=== PATIENT | female | born 1970 | race Two or more races ===

== ENCOUNTER → 2022-06-07 | Emergency (ER) | payer MEDICAID, OTHER ==
[~2022-06-07] VITALS: Ht 167.6 cm; Wt 97.8 kg
[~2022-06-07] MED LIST: MAGNESIUM CITRATE SOLUTION 300 ML BTL PO ONE; MAGNSOL PO; MORPHINE SULFATE 4 MG/ML SYR/VIAL IV ONE; ONDA-144 PO; ONDANSETRON HCL 4 MG/2 ML VIAL IV ONE
[2022-06-07 17:00] VITALS: BP 159/76
[2022-06-07 18:07] LABS: Basophils # (auto) 0.2 10 ^3/uL (0-0.2); Basophils % (auto) 2.4 % (0.0-2.0); Eosinophils # (auto) 0.1 10 ^3/uL (0-0.8); Eosinophils % (auto) 1.3 % (0.0-7.0); Hematocrit 33.1 % (36.0-46.0); Hemoglobin 10.7 g/dL (12.2-16.2); Lymphocytes # (auto) 1.5 10 ^3/uL (0.4-5.4); Lymphocytes % (auto) 22.5 % (10.0-50.0); Mean Corpuscular Hemoglobin 28.9 pg (28.0-32.0); Mean Corpuscular Hgb Conc. 32.3 g/dL (32.0-36.0); Mean Corpuscular Volume 89.6 fL (80.0-100.0); Monocytes # (auto) 0.3 10 ^3/uL (0-1.3); Monocytes % (auto) 4.6 % (0.0-12.0); Neutrophils # (auto) 4.7 10 ^3/uL (1.6-8.6); Neutrophils % (auto) 69.2 % (37.0-80.0); Nucleated Red Blood Cells % 0.1 %; Red Blood Cells 3.69 10^6/uL (4.0-5.20); Red Cell Distribution Width 15.4 % (11.8-14.3); White Blood Cell 6.7 10^3/uL (4.4-10.8)
[2022-06-07 18:24] LABS: Albumin 3.5 g/dL (3.4-5.0); Calcium 10.4 mg/dL (8.5-10.1); Potassium 3.8 mmol/L (3.5-5.1)
[2022-06-07 18:27] LABS: INR 0.97 (0.9-1.15)
[2022-06-07 18:28] LABS: BUN/Creatinine Ratio 4.8; Bilirubin, Total 0.4 mg/dL (0.2-1.0); Total Protein 7.4 g/dL (6.4-8.2)
== END | disposition home or self-care (01) ==
LOC: ER 16:40
DX: K59.00 Constipation, unspecified (principal); R11.2 Nausea with vomiting, unspecified; I12.0 Hypertensive chronic kidney disease with stage 5 chronic kidney disease or end stage renal disease; N18.6 End stage renal disease; Z99.2 Dependence on renal dialysis; Z86.73 Personal history of transient ischemic attack (TIA), and cerebral infarction without residual deficits
CPT/HCPCS: 36415; 74176; 80053; 83605; 83690; 84484; 85025; 85610; 85730; 93005

== ENCOUNTER 2023-01-12 14:01 | Emergency (ER) | payer MEDICAID ==
[~2023-01-12] VITALS: Ht 167.6 cm; Wt 89.0 kg
[~2023-01-12 14:01] MED LIST changes: -MAGNESIUM CITRATE SOLUTION 300 ML BTL PO ONE; -MORPHINE SULFATE 4 MG/ML SYR/VIAL IV ONE; -ONDANSETRON HCL 4 MG/2 ML VIAL IV ONE
[2023-01-12] MEDS ORDERED: HYDROcodone-ACET 10/325MG TAB PO ONE (15:45)
[2023-01-12 16:05] VITALS: BP 198/89
[2023-01-12] MEDS ORDERED: LOSARTAN POTASSIUM 50 MG TAB PO ONE (16:15)
[2023-01-12] MEDS ORDERED: amLODIPine BESYLATE 5 MG TAB PO ONE (16:15)
== END 2023-01-12 16:42 | disposition home or self-care (01) ==
LOC: ER 14:01
DX: S90.31XA Contusion of right foot, initial encounter (principal); I12.0 Hypertensive chronic kidney disease with stage 5 chronic kidney disease or end stage renal disease; N18.6 End stage renal disease; Z79.899 Other long term (current) drug therapy; Z88.5 Allergy status to narcotic agent; W20.8XXA Other cause of strike by thrown, projected or falling object, initial encounter; Y93.89 Activity, other specified; Y92.89 Other specified places as the place of occurrence of the external cause; Y99.8 Other external cause status
CPT/HCPCS: 73630

== ENCOUNTER 2023-09-19 22:14 | Inpatient (IN) | payer MEDICAID ==
[~2023-09-19] VITALS: Ht 167.6 cm; Wt 85.8 kg
[2023-09-19] MEDS ORDERED: HYDROmorphone HCL 2 MG/ML VL/or syr IM ONE (23:00)
[2023-09-19] MEDS ORDERED: cloNIDine HCL 0.1 MG TAB PO ONE (23:00)
[2023-09-19 23:32] LABS: Basophils # (auto) 0.1 10 ^3/uL (0-0.2); Basophils % (auto) 1.2 % (0.0-2.0); Eosinophils # (auto) 0.1 10 ^3/uL (0-0.8); Eosinophils % (auto) 3.1 % (0.0-7.0); Hematocrit 27.6 % (36.0-46.0); Hemoglobin 8.7 g/dL (12.2-16.2); Lymphocytes # (auto) 1.7 10 ^3/uL (0.4-5.4); Lymphocytes % (auto) 36.6 % (10.0-50.0); Mean Corpuscular Hemoglobin 30.3 pg (28.0-32.0); Mean Corpuscular Hgb Conc. 31.4 g/dL (32.0-36.0); Mean Corpuscular Volume 96.4 fL (80.0-100.0); Monocytes # (auto) 0.4 10 ^3/uL (0-1.3); Neutrophils # (auto) 2.3 10 ^3/uL (1.6-8.6); Neutrophils % (auto) 50.1 % (37.0-80.0); Nucleated Red Blood Cells % 0.2 %; Red Blood Cells 2.86 10^6/uL (4.0-5.20); Red Cell Distribution Width 18.1 % (11.8-14.3); White Blood Cell 4.5 10^3/uL (4.4-10.8)
[2023-09-19 23:42] LABS: Albumin 3.4 g/dL (3.2-4.8); Alkaline Phosphatase 51 U/L (46-116); Anion Gap 9 (5-15); Aspartate Aminotransferase < 8 U/L (13-40); BUN/Creatinine Ratio 3.2 (10.0-20.0); Blood Urea Nitrogen 27 mg/dL (9-23); Calcium 9.2 mg/dL (8.7-10.4); Carbon Dioxide 25 mmol/L (20-30); Chloride 105 mmol/L (98-107); Glucose 107 mg/dL (74-106); Potassium 3.8 mmol/L (3.5-5.1); Sodium 139 mmol/L (136-145)
[2023-09-19 23:43] LABS: Bilirubin, Total 0.4 mg/dL (0.2-1.0); Total Protein 6.3 g/dL (5.7-8.2)
[2023-09-19 23:45] LABS: Alanine Aminotransferase < 9 U/L (7-40)
[2023-09-20] MEDS ORDERED: FUROSEMIDE 40 MG/4 ML VIAL IV ONE (01:15)
[2023-09-20] MEDS ORDERED: AZITHROMYCIN 500MG/ 250ML 250 ML IV ONE (01:15)
[2023-09-20 04:25] VITALS: PULSE 78; RESP 18; O2SAT 95
[2023-09-20] MEDS: HYDROcodone-ACET 10/325MG TAB PO ONE ×2 (05:28→05:40)
[2023-09-20] MEDS ORDERED: NITROGLYCERIN 0.4 MG SL TAB SL PRN (05:30)
[2023-09-20] MEDS ORDERED: ACETAMINOPHEN 325 MG TAB PO PRN (05:30)
[2023-09-20] MEDS ORDERED: DEXTROSE (50%) 50ML SYRG IV PRN (05:30)
[2023-09-20] MEDS ORDERED: MORPHINE SULFATE INJ 2 MG/ml SYRG IV PRN (05:30)
[2023-09-20] MEDS ORDERED: ONDANSETRON HCL 4 MG/2 ML VIAL IV PRN (05:30)
[2023-09-20] MEDS: GABAPENTIN 100 MG CAP PO SCH ×3 (06:21→22:11)
[2023-09-20] MEDS: hydrALAZINE HCL 25 MG TAB PO SCH ×3 (06:21→22:12)
[2023-09-20] MEDS: InsuLIN REG 1unit/0.01ml Soln (100units/ml) SC SCH ×4 (07:00→22:00)
[2023-09-20] MEDS: ACCU-CHEK COMFORT CURVE STRIP VI SCH ×4 (07:06→22:03)
[2023-09-20] MEDS: SEVELAMER 800 MG TAB PO SCH ×3 (08:33→18:12)
[2023-09-20 08:49] LABS: Basophils # (auto) 0 10 ^3/uL (0-0.2); Basophils % (auto) 0.8 % (0.0-2.0); Eosinophils # (auto) 0.2 10 ^3/uL (0-0.8); Eosinophils % (auto) 3.8 % (0.0-7.0); Hematocrit 29.1 % (36.0-46.0); Lymphocytes # (auto) 2.3 10 ^3/uL (0.4-5.4); Mean Corpuscular Hemoglobin 29.2 pg (28.0-32.0); Mean Corpuscular Hgb Conc. 31.1 g/dL (32.0-36.0); Mean Corpuscular Volume 94.1 fL (80.0-100.0); Monocytes # (auto) 0.4 10 ^3/uL (0-1.3); Monocytes % (auto) 9.3 % (0.0-12.0); Neutrophils # (auto) 1.9 10 ^3/uL (1.6-8.6); Neutrophils % (auto) 39.1 % (37.0-80.0); Nucleated Red Blood Cells % 0.3 %; Red Blood Cells 3.09 10^6/uL (4.0-5.20); Red Cell Distribution Width 17.9 % (11.8-14.3); White Blood Cell 4.8 10^3/uL (4.4-10.8)
[2023-09-20 09:01] LABS: Albumin 3.6 g/dL (3.2-4.8); Alkaline Phosphatase 54 U/L (46-116); Anion Gap 8 (5-15); Aspartate Aminotransferase 10 U/L (13-40); BUN/Creatinine Ratio 2.7 (10.0-20.0); Bilirubin, Total 0.4 mg/dL (0.2-1.0); Blood Urea Nitrogen 25 mg/dL (9-23); Calcium 10.1 mg/dL (8.5-10.1); Carbon Dioxide 26 mmol/L (20-30); Chloride 104 mmol/L (98-107); Glucose 105 mg/dL (74-106); Potassium 4.2 mmol/L (3.5-5.1); Sodium 138 mmol/L (136-145); Total Protein 6.5 g/dL (5.7-8.2)
[2023-09-20 09:02] LABS: Alanine Aminotransferase < 9 U/L (7-40)
[2023-09-20 09:32] VITALS: PULSE 57; RESP 12; O2SAT 98
[2023-09-20] MEDS: cloNIDine HCL 0.1 MG TAB PO SCH ×2 (09:47→22:12)
[2023-09-20] MEDS: ASPirin 81 mg TAB PO SCH (09:47)
[2023-09-20] MEDS: FUROSEMIDE 40 MG TAB PO SCH (09:47)
[2023-09-20] MEDS: NIFEdipine ER 30 MG TAB PO SCH (09:48)
[2023-09-20] MEDS: CARVEDILOL 3.125 MG TAB PO SCH ×2 (09:48→22:12)
[2023-09-20] MEDS ORDERED: SODIUM CHL 0.9% 1000 ML BAG XX ONE (10:30)
[2023-09-20 11:58] LABS: Hepatitis B Surface Antigen Negative (Negative)
[2023-09-20 12:19] LABS: Hepatitis A Ab IgM Negative
[2023-09-20 12:20] LABS: Hepatitis B Core IgM Negative; Hepatitis C Antibody Negative (Negative)
[2023-09-20] MEDS: hydrALAZINE HCL 20 MG/ML VL IV PRN (17:23)
[2023-09-20] MEDS: HYDROcodone-ACET 5/325MG TAB PO PRN ×2 (19:02→23:55)
[2023-09-20 20:30] VITALS: PULSE 75; RESP 12; O2SAT 90
[2023-09-20] MEDS ORDERED: EPOETIN ALFA-EPBX 10,000 UNIT/1ML VIAL SC ONE (21:00)
[2023-09-21] MEDS ORDERED: methylPREDNISolone SOD SUCC 125 MG/2 ML VL IM ONE (04:30)
[2023-09-21] MEDS: HYDROcodone-ACET 5/325MG TAB PO PRN ×2 (04:43→10:32)
[2023-09-21] MEDS ORDERED: methylPREDNISolone SOD SUCC 125 MG/2 ML VL IV ONE (04:45)
[2023-09-21] MEDS: hydrALAZINE HCL 20 MG/ML VL IV PRN (04:57)
[2023-09-21 05:00] VITALS: BP 100/59; PULSE 75; RESP 17; TEMP 98.3; O2SAT 99
[2023-09-21 05:12] VITALS: BP 196/97; PULSE 75; RESP 17; TEMP 98.3; O2SAT 100
[2023-09-21] MEDS: hydrALAZINE HCL 25 MG TAB PO SCH ×2 (05:59→14:20)
[2023-09-21] MEDS: GABAPENTIN 100 MG CAP PO SCH ×2 (05:59→14:20)
[2023-09-21] MEDS: ACCU-CHEK COMFORT CURVE STRIP VI SCH ×2 (06:05→11:23)
[2023-09-21] MEDS: InsuLIN REG 1unit/0.01ml Soln (100units/ml) SC SCH ×2 (06:05→11:27)
[2023-09-21 07:51] LABS: Basophils # (auto) 0 10 ^3/uL (0-0.2); Basophils % (auto) 0.8 % (0.0-2.0); Eosinophils # (auto) 0.1 10 ^3/uL (0-0.8); Eosinophils % (auto) 2.6 % (0.0-7.0); Hematocrit 30.6 % (36.0-46.0); Hemoglobin 9.5 g/dL (12.2-16.2); Lymphocytes # (auto) 0.6 10 ^3/uL (0.4-5.4); Lymphocytes % (auto) 12.4 % (10.0-50.0); Mean Corpuscular Hgb Conc. 31.1 g/dL (32.0-36.0); Mean Corpuscular Volume 93.2 fL (80.0-100.0); Monocytes # (auto) 0.1 10 ^3/uL (0-1.3); Monocytes % (auto) 2.1 % (0.0-12.0); Neutrophils # (auto) 4.2 10 ^3/uL (1.6-8.6); Neutrophils % (auto) 82.1 % (37.0-80.0); Nucleated Red Blood Cells % 0.1 %; Red Blood Cells 3.28 10^6/uL (4.0-5.20); Red Cell Distribution Width 17.7 % (11.8-14.3); White Blood Cell 5.1 10^3/uL (4.4-10.8)
[2023-09-21 08:00] VITALS: PULSE 80; PULSE 81; RESP 18; O2SAT 100
[2023-09-21 08:19] LABS: Albumin 3.5 g/dL (3.2-4.8); Alkaline Phosphatase 54 U/L (46-116); Anion Gap 8 (5-15); Aspartate Aminotransferase 10 U/L (13-40); BUN/Creatinine Ratio 3.1 (10.0-20.0); Blood Urea Nitrogen 23 mg/dL (9-23); Calcium 9.8 mg/dL (8.5-10.1); Carbon Dioxide 28 mmol/L (20-30); Chloride 101 mmol/L (98-107); Glucose 101 mg/dL (74-106); Potassium 4.5 mmol/L (3.5-5.1); Sodium 137 mmol/L (136-145)
[2023-09-21 08:20] LABS: Alanine Aminotransferase < 9 U/L (7-40); Bilirubin, Total 0.5 mg/dL (0.2-1.0); Total Protein 6.5 g/dL (5.7-8.2)
[2023-09-21] MEDS: SEVELAMER 800 MG TAB PO SCH ×2 (08:23→12:01)
[2023-09-21 09:00] VITALS: BP 151/82; PULSE 81; RESP 18; TEMP 97.4; O2SAT 100
[2023-09-21] MEDS: NIFEdipine ER 30 MG TAB PO SCH (09:40)
[2023-09-21] MEDS: ASPirin 81 mg TAB PO SCH (09:40)
[2023-09-21] MEDS: FUROSEMIDE 40 MG TAB PO SCH (09:41)
[2023-09-21] MEDS: cloNIDine HCL 0.1 MG TAB PO SCH (09:41)
[2023-09-21] MEDS: CARVEDILOL 3.125 MG TAB PO SCH (09:42)
[2023-09-21 13:00] VITALS: BP 140/66; PULSE 87; RESP 18; TEMP 97.5; O2SAT 98
[2023-09-21] MEDS ORDERED: GAB100C PO (14:13)
[2023-09-21] MEDS ORDERED: ASPI81CH59 PO (14:13)
[2023-09-21] MEDS ORDERED: ALBU108A5 INH (14:13)
[2023-09-21] MEDS ORDERED: CARV6.2551 PO (14:13)
[2023-09-21] MEDS ORDERED: HYDR25TA87 PO (14:13)
[2023-09-21] MEDS ORDERED: CLON0.1T PO (14:13)
[2023-09-21] MEDS ORDERED: SEVE800T20 PO (14:13)
[2023-09-21] MEDS ORDERED: FURO40TA4 PO (14:15)
[2023-09-21] MEDS ORDERED: AMLO1TAB22 PO (14:15)
[2023-09-21] MEDS ORDERED: LOSA100T58 PO (14:15)
[2023-09-21] MEDS ORDERED: CINA30TA14 PO (14:15)
[2023-09-21] MEDS ORDERED: PANT40T PO (14:15)
[2023-09-21] MEDS ORDERED: CALC0.25 PO (14:15)
[2023-09-21] MEDS ORDERED: AMIT-256 PO (14:15)
[2023-09-21] MEDS ORDERED: NIFE90TA75 (14:15)
[2023-09-21] MEDS ORDERED: SODIUM CHL 0.9% 1000 ML BAG XX ONE (14:30)
[2023-09-21 14:56] VITALS: BP 151/65; PULSE 87; RESP 18; TEMP 97.5; O2SAT 98
[2023-09-21] MEDS ORDERED: EPOETIN ALFA-EPBX 10,000 UNIT/1ML VIAL SC ONE (21:00)
== END 2023-09-21 16:30 | disposition home or self-care (01) | DRG 194 ==
LOC: EDBD 22:14 → ER 22:14 → TELE 09-20 05:25 → TELE-CENTR 09-20 17:32
PROVIDERS: ADMIT Nurse Practitioner; ATTEND Family Medicine
PROC: 5A1D70Z Performance of Urinary Filtration, Intermittent, Less than 6 Hours Per Day (ICD-10-PCS; principal; 2023-09-20)
DX: I13.2 Hypertensive heart and chronic kidney disease with heart failure and with stage 5 chronic kidney disease, or end stage renal disease (principal); N18.6 End stage renal disease; E44.0 Moderate protein-calorie malnutrition; D63.8 Anemia in other chronic diseases classified elsewhere; E11.21 Type 2 diabetes mellitus with diabetic nephropathy; I16.1 Hypertensive emergency; I50.31 Acute diastolic (congestive) heart failure; E11.22 Type 2 diabetes mellitus with diabetic chronic kidney disease; E11.40 Type 2 diabetes mellitus with diabetic neuropathy, unspecified; E66.9 Obesity, unspecified; G89.29 Other chronic pain; M25.462 Effusion, left knee; I25.10 Atherosclerotic heart disease of native coronary artery without angina pectoris; Z86.73 Personal history of transient ischemic attack (TIA), and cerebral infarction without residual deficits; Z99.2 Dependence on renal dialysis; Z91.158 Patient's noncompliance with renal dialysis for other reason; Z68.30 Body mass index [BMI] 30.0-30.9, adult
CPT/HCPCS: 36415; 71045; 73562; 80053; 80074; 82962; 83605; 83880; 84484; 84550; 85025; 87081; 90935; 93005; 93306; G0378; J1642; J1815; J2405

== ENCOUNTER 2023-10-08 20:31 | Emergency (ER) | payer MEDICAID ==
[~2023-10-08] VITALS: Ht 165.1 cm; Wt 90.7 kg
[~2023-10-08 20:31] MED LIST changes: +ALBU108A5 INH; +AMIT-256 PO; +AMLO1TAB22 PO; +ASPI81CH59 PO; +CALC0.25 PO; +CARV6.2551 PO; +CINA30TA14 PO; +CLON0.1T PO; +FURO40TA4 PO; +GAB100C PO; +HYDR25TA87 PO; +LOSA100T58 PO; +NIFE90TA75; +PANT40T PO; +SEVE800T20 PO
[2023-10-08 21:27] VITALS: PULSE 94; RESP 20; O2SAT 94
[2023-10-08 21:51] LABS: Basophils # (auto) 0.1 10 ^3/uL (0-0.2); Basophils % (auto) 0.8 % (0.0-2.0); Eosinophils # (auto) 0.2 10 ^3/uL (0-0.8); Eosinophils % (auto) 1.8 % (0.0-7.0); Hematocrit 30.1 % (36.0-46.0); Hemoglobin 9.3 g/dL (12.2-16.2); Lymphocytes # (auto) 1.8 10 ^3/uL (0.4-5.4); Lymphocytes % (auto) 22.2 % (10.0-50.0); Mean Corpuscular Hemoglobin 28.7 pg (28.0-32.0); Mean Corpuscular Volume 92.7 fL (80.0-100.0); Monocytes # (auto) 0.6 10 ^3/uL (0-1.3); Monocytes % (auto) 7.1 % (0.0-12.0); Neutrophils # (auto) 5.6 10 ^3/uL (1.6-8.6); Neutrophils % (auto) 68.1 % (37.0-80.0); Nucleated Red Blood Cells % 0.1 %; Red Blood Cells 3.25 10^6/uL (4.0-5.20); Red Cell Distribution Width 16.8 % (11.8-14.3); White Blood Cell 8.3 10^3/uL (4.4-10.8)
[2023-10-08 22:00] LABS: Chloride 103 mmol/L (98-107); Potassium 4.6 mmol/L (3.5-5.1); Sodium 140 mmol/L (136-145)
[2023-10-08 22:01] LABS: Anion Gap 9 (5-15); Calcium 9.6 mg/dL (8.7-10.4); Carbon Dioxide 28 mmol/L (20-30)
[2023-10-08 22:06] LABS: BUN/Creatinine Ratio 4.4 (10.0-20.0); Blood Urea Nitrogen 38 mg/dL (9-23); Glucose 115 mg/dL (74-106)
[2023-10-08] MEDS: MORPHINE SULFATE 4 MG/ML SYR/VIAL IV ONE (22:45)
[2023-10-08 23:13] VITALS: BP 212/116; PULSE 82; RESP 18
== END 2023-10-08 23:49 | disposition home or self-care (01) ==
LOC: ER 20:31 → EDBD 20:31 → ER 23:39
DX: T24.221A Burn of second degree of right knee, initial encounter (principal); M25.562 Pain in left knee; I12.0 Hypertensive chronic kidney disease with stage 5 chronic kidney disease or end stage renal disease; N18.6 End stage renal disease; Z99.2 Dependence on renal dialysis; Z86.73 Personal history of transient ischemic attack (TIA), and cerebral infarction without residual deficits; Z79.82 Long term (current) use of aspirin; Z79.899 Other long term (current) drug therapy; Z88.5 Allergy status to narcotic agent; W18.39XA Other fall on same level, initial encounter; Y93.89 Activity, other specified; Y92.89 Other specified places as the place of occurrence of the external cause; Y99.8 Other external cause status
CPT/HCPCS: 36415; 73562; 80048; 85025; 93005; 96374; 99285; J2270

== ENCOUNTER 2024-07-31 11:01 | Emergency (ER) | payer MEDICAID ==
[~2024-07-31] VITALS: Ht 167.6 cm; Wt 74.7 kg
[~2024-07-31 11:01] MED LIST changes: +AMIT25TA20 PO; +APIX5TAB PO; +ASPI-543 PO; +ATOR20TA PO; +BENZ100C97 PO; +CALC0.5C PO; +CARV12.544 PO; +CINA30TA2 PO; +CLOP75TA28 PO; +DICY-89 PO; +DOCU-94 PO; +ERGO1CAP23 PO; +ERGO500086 PO; +ESCI5TAB PO; +GABA-1308 PO; +HYDR-3682 PO; +HYDR-4902 PO; +LACT10SO3 PO; +LIDO1.8P EX; +LOSA-535 PO; -LOSA100T58 PO; +NIFE1TAB31 PO; +PANT40TA2 PO; +SENN-58 PO; +SEVE800T8 PO; +SPIR25TA8 PO
--- NOTE | 2024-07-31 11:14 | ED.PDOC ---
History of Present Illness HPI Comments 53-year-old female who comes in with chief complaint of leg pain as well as abdominal pain and headache. The patient states that all the symptoms started last night. The patient finished her dialysis today and her blood pressure was also noted to be significantly elevated with a systolic of 260. At that time the dialysis center called 911 and had the patient transported to our facility. The patient states that she typically takes [place] for the pain but she has been out of her medication. She has had a history of this pain in the past. She denies any nausea, vomiting or diarrhea. There has been no fever or chills. Time Seen by MD: 11:03 Primary Care Provider: UNKNOWN Reviewed Notes: Nurses Notes, Product Manufacturing Professional Notes, Medications, Allergies (Cliff rgies listed above) Allergies: Coded Allergies: Ondansetron (Verified Allergy, Mild, 07/16/24) Hydromorphone (Verified Allergy, Unknown, 03/26/24) Ibuprofen (Verified Allergy, Unknown, 03/26/24) Morphine (Verified Allergy, Unknown, 03/26/24) Home Meds Active Scripts Nifedipine (Nifedipine Er) 30 Mg Tab, 60 MG PO QPM for 30 Days, #60 TAB Prov:JOSEMANUEL CORTES 07/18/24 Clopidogrel Bisulfate (Plavix) 75 Mg Tab, 75 MG PO DAILY for 60 Days, #60 TAB Prov:EAMON MURRAY MD 06/15/24 Nifedipine (Nifedipine Er) 30 Mg Tab, 30 MG PO QPM for 60 Days, #60 TAB Prov:EAMON MURRAY MD 06/15/24 Reported Medications Atorvastatin Calcium (Lipitor) 20 Mg Tab, 1 TAB PO DAILY for 30 Days, #30 07/16/24 Losartan Potassium (Losartan Potassium) 100 Mg Tab, 1 TAB PO DAILY for 90 Days, #90 07/16/24 Spironolactone (Spironolactone) 25 Mg Tab, 1 TAB PO DAILY for 90 Days, 07/16/24 Ergocalciferol (Vitamin D (Ergocalciferol) 50,000 Unit Cap, 1 CAP PO QWEEKLY for 49 Days, #7 07/16/24 Furosemide (Furosemide) 40 Mg Tab, 1 TAB PO DAILY for 30 Days, #30 07/16/24 Amlodipine Besylate (Amlodipine Besylate) 5 Mg Tab, 1 TAB PO BID for 30 Days, #60 07/16/24 Calcitriol (Calcitriol) 0.5 Mcg Cap, 1 CAP PO BID for 30 Days, #60 07/16/24 Hydroxyzine Hcl (Hydroxyzine Hcl) 25 Mg Tab, 1 TAB PO QID PRN 04/21/24 Lactulose (Lactulose) 10 Gm/15 Ml Sasha, 30 ML PO DAILY 04/21/24 Docusate Sodium (Colace) 100 Mg Cap, 1 CAP PO BID 04/21/24 Lidocaine (Ztlido) 1.8 % Pad, 1 PATCH EX DAILY 04/21/24 Apixaban Base (ELIQUIS) 5 Mg Tab, 1 TAB PO BID for 30 Days, #30 04/21/24 Escitalopram Oxalate (Lexapro) 5 Mg Tab, 1 TAB PO DAILY 04/21/24 Benzonatate (Benzonatate) 100 Mg Cap, 1 TAB PO TID 04/21/24 Cinacalcet Hydrochloride (Sensipar) 30 Mg Tab, 1 TAB PO DAILY for 30 Days, #30 04/21/24 Sevelamer Carbonate (Renvela) 800 Mg Tab, 3 TAB PO TID for 30 Days, #270 04/21/24 Gabapentin (Gabapentin) 100 Mg Cap, 1 TAB PO DAILY for 90 Days, #90 04/21/24 Pantoprazole Sodium Sesquihydr (Protonix) 40 Mg Tab, 1 TAB PO BID for 30 Days, #60 04/21/24 Senna (Senokot) 8.6 Mg Tab, 2 TAB PO BID for 15 Days, #60 03/27/24 Carvedilol (Carvedilol) 12.5 Mg Tab, 1 TAB PO BID for 60 Days 03/27/24 Dicyclomine Hcl (Dicyclomine Hcl) 10 Mg Cap, 10 MG PO TIDPRN PRN for PAIN SCALE 1 THRU 6 for 30 Days, MG 03/27/24 Hydrocodone-Acetaminophen (Hydrocodone Bitartrate/AC 5-325 mg) 1 Tab Tab, 1 TAB PO Q6HP PRN for PAIN SCALE 1 THRU 6, TAB 03/27/24 Amitriptyline Hcl (Amitriptyline Hcl) 25 Mg Tab, 50 MG PO HS for 30 Days, #30 03/27/24 Aspirin (Aspir-Low) 81 Mg Tab, 1 TAB PO DAILY for 30 Days, #30 03/27/24 Information Source: Patient, Emergency Med Personnel Mode of Arrival: EMS Severity: Moderate Timing: Hours Duration: Since onset 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 Associated signs and symptoms No associated chest pain or shortness for breath Past Medical History PAST MEDICAL HISTORY: CAD, CHF, CKF, COPD, CVA, ESRD, GERD, HTN, [place] Past Medical History (Other): DVT right upper extremity Surgical History: CABG PHOTOGRAPHIC PROCESS SCREEN MAKER History: No Pertinent PHOTOGRAPHIC PROCESS SCREEN MAKER History Family History Family History: Reviewed,noncontributory to illness Social History Smoker: Cigarettes Alcohol: Denies ETOH Use Drugs: Denies Drug Use Lives In: Home Constitutional: denies: chills, diaphoresis, fatigue, fever, malaise, sweats, weakness, others EENTM: denies: blurred vision, double vision, ear bleeding, ear discharge, ear drainage, ear pain, ear ringing, eye pain, eye redness, hearing loss, mouth pa in, mouth swelling, nasal discharge, nose bleeding, nose congestion, nose pain, photophobia, tearing, throat pain, throat swelling, voice changes, others Respiratory: denies: cough, hemoptysis, orthopnea, SOB at rest, shortness of breath, SOB with excertion, stridor, wheezing, others Cardiovascular: denies: chest pain, dizzy spells, diaphoresis, Dyspnea on exertion, edema, irregular heart beat, left arm pain, lightheadedness, palpitations, PND, syncope, others Gastrointestinal: reports: abdominal pain; denies: abdomen distended, blood streaked bowels, constipated, diarrhea, dysphagia, difficulty swallowing, hematemesis, melena, nausea, poor appetite, poor fluid intake, rectal bleeding, rectal pain, vomiting, others Genitourinary: denies: abnormal vagina bleeding, burning, dyspareunia, dysuria, flank pain, frequency, hematuria, incontinence, pain, , vagina discharge, urgency, others Neurological: reports: headache; denies: dizziness, fainting, left sided numbness, left sided weakness, numbness, paresthesia, pre-existing deficit, right sided numbness, right sided weakness, seizure, speech problems, tingling, tremors, weakness, others Musculoskeletal: reports: others (Bilateral leg pain); denies: back pain, gout, joint pain, joint swelling, muscle pain, muscle stiffness, neck pain Integumetry: denies: bruises, change in color, change in hair/nails, dryness, laceration, lesions, lumps, rash, wounds, others Allergic/Immunocompromised: denies: Difficulty Healing, Frequent Infections, Hives, Itching, others Hematologic/Lymphatic: denies: anemia, blood clots, easy bleeding, easy bruising, swollen glands, others Endocrine: denies: excessive hunger, excessive sweating, excessive thirst, excessive urination, flushing, intolerance to cold, intolerance to heat, unexplained weight gain, unexplained weight loss, others Psychiatric: denies: anxiety, bipolar disorder, depression, hopeless, panic disorder, schizophrenia, sleepless, suicidal, others Physical Exam General Appearance: Mild Distress HEENT: Normal ENT Inspection, Pharynx Normal, TMs Normal Neck: Full Range of Motion, Non-Tender, Normal, Normal Inspection Respiratory: Chest Non-Tender, Lungs Clear, No Accessory Muscle Use, No Respiratory Distress, Normal Breath Sounds Cardiovascular: No Edema, No JVD, No Murmur, No Gallop, Normal Peripheral Pulses, Regular Rate/Rhythm, Other (Tio catheter to the right chest) Breast Exam: Deferred Gastrointestinal: No Organomegaly, Non Tender, No Pulsatile Mass, Normal Bowel Sounds, Soft Genitalia: Deferred Pelvic: Deferred Rectal: Deferred Extremities: No calf tenderness, Normal capillary refill, No pedal edema Musculoskeletal : Apperance: Normal Neurologic: Alert, scow hand II-XII nml as Tested, Motor Weakness, Normal Affect, Normal Mood, No Sensory Deficits Cerebellar Function: Normal Reflexes: Normal Skin: Dry, Normal Color, Warm Lymphatic: No Adenopathy Was a procedure done? Was a procedure done?: No Differential Dx Considerations may include: Chronic pain syndrome, hypertensive urgency, hypertensive crisis, generalized weakness X-Ray, Labs, Meds, VS Vital Signs Date Time Temp Pulse Resp B/P (MAP) Pulse Ox O2 Delivery O2 Flow Rate FiO2 07/31/24 11:13 97.4 80 16 179/84 (115) 95 Lab Test 07/31/24 11:34 Range/Units White Blood Count 5.2 4.4-10.8 10^3/uL Red Blood Count 3.40 L 4.0-5.20 10^6/uL Hemoglobin 10.3 L 12.2-16.2 g/dL Hematocrit 31.9 L 36.0-46.0 % Mean Corpuscular Volume 93.9 80.0-100.0 fL Mean Corpuscular Hemoglobin 30.2 28.0-32.0 pg Mean Corpuscular Hemoglobin Concent 32.2 32.0-36.0 g/dL Red Cell Distribution Width 17.4 H 11.8-14.3 % Platelet Count 192 140-450 10^3/uL Mean Platelet Volume 7.3 6.9-10.8 fL Neutrophils (%) (Auto) 61.5 37.0-80.0 % Lymphocytes (%) (Auto) 28.3 10.0-50.0 % Monocytes (%) (Auto) 5.9 0.0-12.0 % Eosinophils (%) (Auto) 3.4 0.0-7.0 % Basophils (%) (Auto) 0.9 0.0-2.0 % Neutrophils # (Auto) 3.2 1.6-8.6 10 ^3/uL Lymphocytes # (Auto) 1.5 0.4-5.4 10 ^3/uL Monocytes # (Auto) 0.3 0-1.3 10 ^3/uL Eosinophils # (Auto) 0.2 0-0.8 10 ^3/uL Basophils # (Auto) 0 0-0.2 10 ^3/uL Nucleated Red Blood Cells 0.0 % Sodium Level 137 136-145 mmol/L Potassium Level 3.4 L 3.5-5.1 mmol/L Chloride Level 98 98-107 mmol/L Carbon Dioxide Level 26 20-31 mmol/L Anion Gap 13 5-15 Blood Urea Nitrogen 45 H 9-23 mg/dL Creatinine 6.18 H 0.550-1.02 mg/dL Glomerular Filtration Rate Calc 8 >90 mL/min BUN/Creatinine Ratio 7.3 L 10.0-20.0 Serum Glucose 217 H 74-106 mg/dL Calcium Level 9.3 8.7-10.4 mg/dL Current Medications Medications (Trade) Dose Ordered Sig/Faustino Route Start Time Stop Time Status Last Admin Acetaminophen/ Hydrocodone Bitart ([place] 10/325MG Tab) 1 tab ONCE ONCE PO 07/31/24 11:15 07/31/24 11:16 DC 07/31/24 12:10 The patient was given acetaminophen 10/325 p.o. here in the emergency department's The patient's CBC and chemistry panel does show some mild anemia as well as the aforementioned renal failure elevated BUN and elevated creatinine The patient will be discharged The patient will follow up with the primary care doctor The patient was told to continue taking her pain medication at home We did give the patient a prescription for [place] Time of 1ST Reevaluation: 11:23 Reevaluation 1ST: Unchanged Patient Education/Counseling: Diagnosis, Treatment, Prognosis, Need For Follow Up Family Education/Counseling: No Family Present Departure 1 Departure Time of Disposition: 12:31 Impression: Primary Impression: ESRD on dialysis Additional Impression: Chronic pain syndrome Disposition: 01 HOME / SELF CARE / HOMELESS Condition: Fair Discharged With: Self Critical Care Note Critical Care Time?: No Stability Stability form required: No Heart Score Heart Score: Heart Score Response (Comments) Value History N/A 0 EKG N/A 0 Age N/A 0 Risk Factors N/A 0 Troponin N/A 0 Total 0 MERA MENDOZA MD Jul 31, 2024 11:14
[2024-07-31 11:47] LABS: Basophils # (auto) 0 10 ^3/uL (0-0.2); Basophils % (auto) 0.9 % (0.0-2.0); Eosinophils # (auto) 0.2 10 ^3/uL (0-0.8); Eosinophils % (auto) 3.4 % (0.0-7.0); Hematocrit 31.9 % (36.0-46.0); Hemoglobin 10.3 g/dL (12.2-16.2); Lymphocytes # (auto) 1.5 10 ^3/uL (0.4-5.4); Lymphocytes % (auto) 28.3 % (10.0-50.0); Mean Corpuscular Hemoglobin 30.2 pg (28.0-32.0); Mean Corpuscular Hgb Conc. 32.2 g/dL (32.0-36.0); Mean Corpuscular Volume 93.9 fL (80.0-100.0); Monocytes # (auto) 0.3 10 ^3/uL (0-1.3); Monocytes % (auto) 5.9 % (0.0-12.0); Neutrophils # (auto) 3.2 10 ^3/uL (1.6-8.6); Neutrophils % (auto) 61.5 % (37.0-80.0); Platelet Count (auto) 192 10^3/uL (140-450); Red Cell Distribution Width 17.4 % (11.8-14.3); White Blood Cell 5.2 10^3/uL (4.4-10.8)
[2024-07-31 11:59] LABS: Chloride 98 mmol/L (98-107); Sodium 137 mmol/L (136-145)
[2024-07-31 12:00] LABS: Anion Gap 13 (5-15); Calcium 9.3 mg/dL (8.7-10.4); Carbon Dioxide 26 mmol/L (20-31)
[2024-07-31 12:01] LABS: Potassium 3.4 mmol/L (3.5-5.1)
[2024-07-31 12:05] LABS: BUN/Creatinine Ratio 7.3 (10.0-20.0); Blood Urea Nitrogen 45 mg/dL (9-23); Glucose 217 mg/dL (74-106)
[2024-07-31] MEDS: HYDROcodone-ACET 10/325MG TAB PO ONE (12:10)
[2024-07-31] MEDS: cloNIDine HCL 0.1 MG TAB PO ONE (14:01)
[2024-07-31] MEDS: PANTOPRAZOLE 40 MG TAB PO ONE (14:20)
[2024-07-31 15:51] VITALS: BP 138/100; PULSE 74; TEMP 98.1
[2024-07-31 15:59] VITALS: RESP 18; O2SAT 98
== END 2024-07-31 16:11 | disposition home or self-care (01) ==
LOC: EDBD 11:01 → EDUNIT# 11:01 → ER 11:01 → MERGE 11:01 → ER 16:01
DX: I13.2 Hypertensive heart and chronic kidney disease with heart failure and with stage 5 chronic kidney disease, or end stage renal disease (principal); N18.6 End stage renal disease; I50.89 Other heart failure; G89.4 Chronic pain syndrome; K21.9 Gastro-esophageal reflux disease without esophagitis; F17.210 Nicotine dependence, cigarettes, uncomplicated; Z99.2 Dependence on renal dialysis; Z86.73 Personal history of transient ischemic attack (TIA), and cerebral infarction without residual deficits; Z98.890 Other specified postprocedural states
CPT/HCPCS: 36415; 80048; 85025

== ENCOUNTER 2024-09-06 13:30 | Inpatient (IN) | payer MEDICAID ==
[~2024-09-06] VITALS: Ht 160 cm; Wt 76.4 kg
--- NOTE | 2024-09-06 13:49 | ED.PDOC ---
GI ASSESSMENT HPI Comments 53-year-old female presents to the ED via EMS for chief complaint of epigastric pain the started today during dialysis session. Patient reports she got about 3 L of fluid out, states pain continued throughout and at the end of the session which prompted her to call 911. Patient does also complain of nausea and vomiting for a week. EMS reports the patient's blood pressure was at 177/82 upon ED arrival. Patient denies any diarrhea, fever, chills, chest pain, shortness a breath. Patient has a medical history of ESRD, mi, CVA, hypertension, and diabetes Time Seen by MD: 13:33 Primary Care Provider: PLACIDO Reviewed Notes: Nurses Notes, Globe Mounter Notes, Medications, Allergies Allergies: Coded Allergies: Ondansetron (Verified Allergy, Mild, 08/05/24) Hydromorphone (Verified Allergy, Unknown, 10/08/23) Ibuprofen (Verified Allergy, Unknown, 08/05/24) Morphine (Verified Allergy, Unknown, 08/05/24) Home Meds Active Scripts Nifedipine (Nifedipine Er) 30 Mg Tab, 60 MG PO QPM for 30 Days, #60 TAB Prov:JOSEMANUEL CORTES RESIDENT 07/18/24 Clopidogrel Bisulfate (Plavix) 75 Mg Tab, 75 MG PO DAILY for 60 Days, #60 TAB Prov:EAMON MURRAY MD 06/15/24 Nifedipine (Nifedipine Er) 30 Mg Tab, 30 MG PO QPM for 60 Days, #60 TAB Prov:EAMON MURRAY MD 06/15/24 Ergocalciferol (VITAMIN D 62601 UNIT) 50,000 [place], [address] UNIT PO Q7D for 7 Days, #7 CAP Prov:YOLANDA NGUYEN MD 06/05/24 Magnesium Citrate (Magnesium Citrate) 1.745 Gm/30 Ml Sasha, 300 ML PO DAILY PRN, #300 ML Prov:LINUS PAZ MD 06/07/22 Ondansetron (Zofran) 4 Mg Tab, 4 MG PO Q8HPRN PRN, #15 MG Prov:LINUS PAZ MD 06/07/22 Reported Medications Atorvastatin Calcium (Lipitor) 20 Mg Tab, 1 TAB PO DAILY for 30 Days, #30 07/16/24 Losartan Potassium (Losartan Potassium) 100 Mg Tab, 1 TAB PO DAILY for 90 Days, #90 07/16/24 Spironolactone (Spironolactone) 25 Mg Tab, 1 TAB PO DAILY for 90 Days, #90 07/16/24 Ergocalciferol (Vitamin D (Ergocalciferol) 50,000 Unit Cap, 1 CAP PO QWEEKLY for 49 Days, #7 07/16/24 Furosemide (Furosemide) 40 Mg Tab, 1 TAB PO DAILY for 30 Days, #30 07/16/24 Amlodipine Besylate (Amlodipine Besylate) 5 Mg Tab, 1 TAB PO BID for 30 Days, #60 07/16/24 Calcitriol (Calcitriol) 0.5 Mcg Cap, 1 CAP PO BID for 30 Days, #60 07/16/24 Hydroxyzine Hcl (Hydroxyzine Hcl) 25 Mg Tab, 1 TAB PO QID PRN 04/21/24 Lactulose (Lactulose) 10 Gm/15 Ml Sasha, 30 ML PO DAILY 04/21/24 Docusate Sodium (Colace) 100 Mg Cap, 1 CAP PO BID 04/21/24 Lidocaine (Ztlido) 1.8 % Pad, 1 PATCH EX DAILY 04/21/24 Apixaban Base (ELIQUIS) 5 Mg Tab, 1 TAB PO BID for 30 Days, #30 04/21/24 Escitalopram Oxalate (Lexapro) 5 Mg Tab, 1 TAB PO DAILY 04/21/24 Benzonatate (Benzonatate) 100 Mg Cap, 1 TAB PO TID 04/21/24 Cinacalcet Hydrochloride (Sensipar) 30 Mg Tab, 1 TAB PO DAILY for 30 Days, #30 04/21/24 Sevelamer Carbonate (Renvela) 800 Mg Tab, 3 TAB PO TID for 30 Days, #270 04/21/24 Gabapentin (Gabapentin) 100 Mg Cap, 1 TAB PO DAILY for 90 Days, #90 04/21/24 Pantoprazole Sodium Sesquihydr (Protonix) 40 Mg Tab, 1 TAB PO BID for 30 Days, #60 04/21/24 Senna (Senokot) 8.6 Mg Tab, 2 TAB PO BID for 15 Days, #60 03/27/24 Carvedilol (Carvedilol) 12.5 Mg Tab, 1 TAB PO BID for 60 Days 03/27/24 Dicyclomine Hcl (Dicyclomine Hcl) 10 Mg Cap, 10 MG PO TIDPRN PRN for PAIN SCALE 1 THRU 6 for 30 Days, MG 03/27/24 Hydrocodone-Acetaminophen (Hydrocodone Bitartrate/AC 5-325 mg) 1 Tab Tab, 1 TAB PO Q6HP PRN for PAIN SCALE 1 THRU 6, TAB 03/27/24 Amitriptyline Hcl (Amitriptyline Hcl) 25 Mg Tab, 50 MG PO HS for 30 Days, #30 03/27/24 Aspirin (Aspir-Low) 81 Mg Tab, 1 TAB PO DAILY for 30 Days, #30 03/27/24 Amitriptyline HCl (Amitriptyline Hydrochlori) 50 Mg Tab, 1 TAB PO 09/21/23 Losartan Potassium (Losartan Potassium) 100 Mg Tab, 1 TAB PO DAILY 09/21/23 Furosemide (Furosemide) 40 Mg Tab, 1 TAB PO DAILY 09/21/23 Amlodipine Besylate (Amlodipine Besylate) 5 Mg Tab, 1 TAB PO BID 09/21/23 Cinacalcet HCl (Cinacalcet Hydrochloride) 30 Mg Tab, 1 TAB PO DAILY 09/21/23 Calcitriol (Calcitriol) 0.25 Mcg Cap, 1 CAP PO DAILY 09/21/23 Pantoprazole Sodium Sesquihydr (Pantoprazole Sodium) 40 Mg Tab, 1 TAB PO BID 09/21/23 Nifedipine (Nifedipine Er) 90 Mg Tab 09/21/23 Gabapentin (Gabapentin) 100 Mg Cap, 1 CAP PO TID 09/21/23 Sevelamer Hydrochloride (Sevelamer Hydrochloride) 800 Mg Tab, 3 TAB PO TID 09/21/23 Aspirin (Aspirin Low Dose) 81 Mg Chw, 1 TAB PO DAILY 09/21/23 Albuterol Sulfate (Albuterol Sulfate Hfa) 108 Mcg/Act Aer, INH 09/21/23 Clonidine Hydrochloride (Clonidine Hcl) 0.1 Mg Tab, 1 TAB PO BID 09/21/23 Carvedilol (Carvedilol) 6.25 Mg Tab, 1 TAB PO BID 09/21/23 Hydralazine HCl (Hydralazine HCl) 25 Mg Tab, 1 TAB PO BID 09/21/23 Information Source: Patient, Emergency Med Personnel Mode of Arrival: EMS Timing: Hours Duration: Since onset Quality: Sharp Vomitus: Hard Stool: Normal Severity: Moderate Recent: None Recent Hx of: None Pain Location: Epigastric Modifying Factors: Nothing Associated sign and symptoms: Nausea, Vomiting, Abdominal Pain Past Medical History PAST MEDICAL HISTORY: CAD, CHF, CKF, CVA, HTN, [place] Surgical History: CABG PRIMARY CARE NURSE PRACTITIONER History: Denies all PRIMARY CARE NURSE PRACTITIONER Hx Family History Family History: Reviewed,noncontributory to illness Social History Smoker: Non-Smoker Alcohol: Denies ETOH Use Drugs: Denies Drug Use Lives In: Home Constitutional: denies: chills, diaphoresis, fatigue, fever, malaise, sweats, weakness, others EENTM: denies: blurred vision, double vision, ear bleeding, ear discharge, ear drainage, ear pain, ear ringing, eye pain, eye redness, hearing loss, mouth pain, mouth swelling, nasal discharge, nose bleeding, nose congestion, nose pain, photophobia, tearing, throat pain, throat swelling, voice changes, others Respiratory: denies: cough, hemoptysis, orthopnea, SOB at rest, shortness of breath, SOB with excertion, stridor, wheezing, others Cardiovascular: denies: chest pain, dizzy spells, diaphoresis, Dyspnea on exertion, edema, irregular heart beat, left arm pain, lightheadedness, palpitations, PND, syncope, others Gastrointestinal: reports: abdominal pain, nausea, vomiting; denies: abdomen distended, blood streaked bowels, constipated, diarrhea, dysphagia, difficulty swallowing, hematemesis, melena, poor appetite, poor fluid intake, rectal bleeding, rectal pain, others Genitourinary: denies: abnormal vagina bleeding, burning, dyspareunia, dysuria, flank pain, frequency, hematuria, incontinence, pain, , vagina discharge, urgency, others Neurological: denies: dizziness, fainting, headache, left sided numbness, left sided weakness, numbness, paresthesia, pre-existing deficit, right sided numbness, right sided weakness, seizure, speech problems, tingling, tremors, weakness, others Musculoskeletal: denies: back pain, gout, joint pain, joint swelling, muscle pain, muscle stiffness, neck pain, others Integumetry: denies: bruises, change in color, change in hair/nails, dryness, laceration, lesions, lumps, rash, wounds, others Allergic/Immunocompromised: denies: Difficulty Healing, Frequent Infections, Hives, Itching, others Hematologic/Lymphatic: denies: anemia, blood clots, easy bleeding, easy bruising, swollen glands, others Endocrine: denies: excessive hunger, excessive sweating, excessive thirst, excessive urination, flushing, intolerance to cold, intolerance to heat, unexplained weight gain, unexplained weight loss, others Psychiatric: denies: anxiety, bipolar disorder, depression, hopeless, panic disorder, schizophrenia, sleepless, suicidal, others All Other Systems: Reviewed and Negative Physical Exam General Appearance: Moderate Distress HEENT: Normal ENT Inspection, Pharynx Normal, TMs Normal Neck: Full Range of Motion, Non-Tender, Normal, Normal Inspection Respiratory: Chest Non-Tender, Lungs Clear, No Accessory Muscle Use, No Respiratory Distress, Normal Breath Sounds Cardiovascular: No Edema, No JVD, No Murmur, No Gallop, Normal Peripheral Pulses, Regular Rate/Rhythm Breast Exam: Deferred Gastrointestinal: No Organomegaly, Non Tender, No Pulsatile Mass, Normal Bowel Sounds, Soft Genitalia: Deferred Pelvic: Deferred Rectal: Deferred Extremities: Normal range of motion, No pedal edema Musculoskeletal : Apperance: Normal Neurologic: Alert Cerebellar Function: NOT DONE Reflexes: NOT DONE Skin: Pallor Peripheral Pulses: 3+ Radial (R), 3+ Radial (L) Lymphatic: No Adenopathy Was a procedure done? Was a procedure done?: No GI differential Dx Differential Diagnosis: Constipation, Diverticular disease, Esophagitis, Gastritis/PUD, Gastroenteritis, Pancreatitis, Dehydration, Electrolyte Imbalance X-Ray, Labs, Meds, VS Vital Signs Date Time Temp Pulse Resp B/P (MAP) Pulse Ox O2 Delivery O2 Flow Rate FiO2 09/06/24 14:34 75 18 97 Room Air 09/06/24 14:34 98.2 75 18 208/67 (114) 97 98.2 221/103 (142) 09/06/24 14:02 98.4 78 18 177/82 (113) 95 Patient alert. Just came from dialysis. Blood pressure elevated. Saturation pristine on room air. Was given clonidine. She has been having abdominal discomfort for a week. Nausea vomiting diarrhea. Reviewed her history. Explained to the patient. Continue cardiac monitoring. Time of 1ST Reevaluation: 13:56 Reevaluation 1ST: Unchanged Patient Education/Counseling: Diagnosis, Treatment, Prognosis Family Education/Counseling: No Family Present Additional Information I reviewed the following notes from patient's past medical encounters: 07/31/25- ESRD Dialysis The following tests were ordered, and results were reviewed by me: (Labs, XY, EKG) Additional Information was gathered from interviewing the following independent historians: Paramedics I reviewed and agreed with the following test results read by other providers: I discussed treatment and results with medical personnel Departure 1 Departure Time of Disposition: 14:39 Impression: Primary Impression: Acute abdominal pain Additional Impressions: Hypertensive urgency ESRD on dialysis Disposition: ADMITTED INPATIENT Admit to: Med Surg Condition: Guarded Critical Care Note Critical Care Time?: Yes (45 min-critical care time only) Stability Stability form required: No I personally scribed for JUAN ALBERTO MCGHEE MD ([email or web address]) on 09/06/24 at 13:48. Electronically submitted by Darling Tai ([facility]). I personally scribed for JUAN ALBERTO MCGHEE MD ([email or web address]) on 09/06/24 at 13:57. Electronically submitted by Darling Tai ([facility]). JUAN ALBERTO MCGHEE MD Sep 06, 2024 13:48
[2024-09-06 15:07] LABS: Chloride 100 mmol/L (98-107); Potassium 3.5 mmol/L (3.5-5.1)
[2024-09-06 15:08] LABS: Anion Gap 8 (5-15); Calcium 9.4 mg/dL (8.7-10.4); Carbon Dioxide 26 mmol/L (20-31)
[2024-09-06 15:13] LABS: BUN/Creatinine Ratio 8.4 (10.0-20.0)
[2024-09-06 15:29] LABS: Blood Urea Nitrogen 47 mg/dL (9-23); Glucose 128 mg/dL (74-106); Sodium 134 mmol/L (136-145)
[2024-09-06 15:40] LABS: Lipase 44 U/L (12-53)
[2024-09-06 15:42] LABS: Basophils # (auto) 0.1 10 ^3/uL (0-0.2); Basophils % (auto) 0.9 % (0.0-2.0); Eosinophils # (auto) 0.1 10 ^3/uL (0-0.8); Eosinophils % (auto) 2.1 % (0.0-7.0); Hematocrit 36.2 % (36.0-46.0); Hemoglobin 11.6 g/dL (12.2-16.2); Lymphocytes # (auto) 1.4 10 ^3/uL (0.4-5.4); Lymphocytes % (auto) 23.7 % (10.0-50.0); Mean Corpuscular Volume 93.9 fL (80.0-100.0); Monocytes # (auto) 0.4 10 ^3/uL (0-1.3); Monocytes % (auto) 7.5 % (0.0-12.0); Neutrophils # (auto) 3.8 10 ^3/uL (1.6-8.6); Neutrophils % (auto) 65.8 % (37.0-80.0); Nucleated Red Blood Cells % 0.2 %; Platelet Count (auto) 195 10^3/uL (140-450); Red Blood Cells 3.85 10^6/uL (4.0-5.20); Red Cell Distribution Width 16.6 % (11.8-14.3); White Blood Cell 5.7 10^3/uL (4.4-10.8)
[2024-09-06] MEDS ORDERED: LABETALOL HCL 20 MG/4 ML VL IV ONE (16:15)
[2024-09-06] MEDS: hydrALAZINE HCL 20 MG/ML VL IV ONE (17:46)
[2024-09-06 19:23] VITALS: PULSE 89; RESP 18; O2SAT 96
[2024-09-06] MEDS: HYDROcodone-ACET 5/325MG TAB PO ONE (19:32)
[2024-09-06] MEDS: ONDANSETRON HCL 4 MG/2 ML VIAL IV ONE (20:09)
[2024-09-06] MEDS ORDERED: METOCLOPRAMIDE HCL 5MG/ml INJ 2ml VIAL IV PRN (21:15)
[2024-09-06] MEDS ORDERED: NITROGLYCERIN 0.4 MG SL TAB SL PRN (22:45)
[2024-09-06] MEDS ORDERED: MORPHINE SULFATE INJ 2 MG/ml SYRG IV PRN (22:45)
--- NOTE | 2024-09-06 22:46 | DVHHP2 ---
History of Present Illness Reason for Visit: Hypertensive urgency History of Present Illness The patient is a 53-year-old female with past medical history of Coronary artery disease, CHF CVA, hypertension, OH, and end-stage renal disease on hemodialysis who presented to [facility] with complaint of acute abdominal pain. Patient reports symptoms started during her dialysis session when about 3 L of fluid was taken out, associated nausea vomiting, continue throughout until the end of the session which prompted this visit. Patient was seen and evaluated in the ED, laboratory data shows WBC 5.7, platelets 195 sodium 134, potassium 3.5, BUN 47, creatinine 5.58, GFR 9, glucose 128, lipase 44, blood pressure 221/103 trending down to 134/75, heart rate 88, temperature 98.2 F, O2 saturation 97% on room air. Patient was given IV hydralazine, please see medication orders section in the computer. On my assessment, patient denied chest pain, no headache, no dizziness, no diaphoresis, no shortness of breath, no diarrhea, no nausea, no vomiting, no fever, no chills. Patient was admitted for further evaluation and medical management. Past Medical History CAD, CHF, CKF, CVA, HTN, OH Past Surgical History CABG Family History Reviewed, noncontributory to the management of this case. Past Social History The patient lives at home, denies smoking, alcohol or illicit drugs abuse. Review of Systems Constitutional: No: Fever, Chills, Sweats, Weakness, Malaise, Other Eyes: No: Pain, Vision change, Conjunctivae inflammation, Eyelid inflammation, Other, Redness ENT: No: Ear pain, Ear discharge, Nose pain, Nose discharge, Nose congestion, Mouth pain, Mouth swelling, Throat pain, Throat swelling, Other Respiratory: No: Cough, Dry, Shortness of breath, SOB with excertion, Wheezing, Hemoptysis, Pleuritic Pain, Sputum, Wheezing, Other Cardiovascular: No: Chest Pain, Palpitations, Orthopnea, Paroxysmal Noc. Dyspnea, Edema, Lt Headedness, Other Gastrointestinal: Nausea, Vomiting, Abdominal Pain; No: Diarrhea, Constipation, Melena, Hematochezia, Other Genitourinary: No Dysuria, No Frequency, No Incontinence, No Hematuria, No Retention, No Other Musculoskeletal: No: other, neck pain, shoulder pain, arm pain, back pain, hand pain, leg pain, foot pain Skin: No: Rash, Lesions, Jaundice, Bruising, Other Neurological: No: Weakness, Numbness, Incoordination, Change in speech, Confusion, Seizures, Other Allergies: Coded Allergies: Ondansetron (Verified Allergy, Mild, 08/05/24) Hydromorphone (Verified Allergy, Unknown, 10/08/23) Ibuprofen (Verified Allergy, Unknown, 08/05/24) Morphine (Verified Allergy, Unknown, 08/05/24) Medications Current Medications Medications Dose Ordered Sig/Faustino Route Start Time Stop Time Status Last Admin Dose Admin Aspirin 81 mg DAILY PO 09/07/24 10:00 Sevelamer HCl 800 mg TIDWM PO 09/07/24 08:00 Multivit/Ca Carb/ B Cmplx/FA/Prenat 1 tab DAILY PO 09/07/24 10:00 Hydralazine HCl 10 mg Q6HP PRN IV 09/06/24 21:00 Amlodipine Besylate 5 mg DAILY PO 09/07/24 10:00 Carvedilol 12.5 mg Q12HR PO 09/06/24 22:00 Atorvastatin Calcium 20 mg HS PO 09/06/24 22:00 Famotidine 10 mg DAILY IV 09/07/24 10:00 Docusate Sodium 100 mg BIDPRN PRN PO 09/06/24 21:00 Acetaminophen 650 mg Q6HP PRN PO 09/06/24 21:00 Clopidogrel Bisulfate 75 mg DAILY PO 09/07/24 10:00 Metoclopramide HCl 5 mg Q6HPRN PRN IV 09/06/24 21:15 Exam Vital Signs Vital Signs Date Time Temp Pulse Resp B/P (MAP) Pulse Ox O2 Delivery O2 Flow Rate FiO2 09/06/24 19:23 89 18 180/80 (113) 96 09/06/24 19:23 Room Air* 0 21 09/06/24 14:34 98.2 98.2 General Appearance: Alert, Oriented X3, Cooperative, No acute distress HEENT: Atraumatic, PERRLA, EOMI, Mucous membr. moist/pink Respiratory: Clear to auscultation, Normal air movement Cardiovascular: Regular rate, Normal S1, Normal S2, No murmurs Abdominal: Normal bowel sounds, Soft, No tenderness, No hepatospenomegaly, No masses Extremities: No clubbing, No cyanosis, No edema, Normal pulses, No tenderness/swelling Skin: No rashes, No breakdown, No significant lesion Neuro: Normal speech, Normal tone, Sensation intact, Cranial nerves 3-12 NL, Reflexes 2+, Other (Generalized weakness) Psych/Mental Status: Mental status NL, Mood NL Labs/Xrays Labs Test 09/06/24 15:19 09/06/24 14:25 Range/Units White Blood Count 5.7 4.4-10.8 10^3/uL Red Blood Count 3.85 L 4.0-5.20 10^6/uL Hemoglobin 11.6 L 12.2-16.2 g/dL Hematocrit 36.2 36.0-46.0 % Mean Corpuscular Volume 93.9 80.0-100.0 fL Mean Corpuscular Hemoglobin 30.0 28.0-32.0 pg Mean Corpuscular Hemoglobin Concent 32.0 32.0-36.0 g/dL Red Cell Distribution Width 16.6 H 11.8-14.3 % Platelet Count 195 140-450 10^3/uL Mean Platelet Volume 7.2 6.9-10.8 fL Neutrophils (%) (Auto) 65.8 37.0-80.0 % Lymphocytes (%) (Auto) 23.7 10.0-50.0 % Monocytes (%) (Auto) 7.5 0.0-12.0 % Eosinophils (%) (Auto) 2.1 0.0-7.0 % Basophils (%) (Auto) 0.9 0.0-2.0 % Neutrophils # (Auto) 3.8 1.6-8.6 10 ^3/uL Lymphocytes # (Auto) 1.4 0.4-5.4 10 ^3/uL Monocytes # (Auto) 0.4 0-1.3 10 ^3/uL Eosinophils # (Auto) 0.1 0-0.8 10 ^3/uL Basophils # (Auto) 0.1 0-0.2 10 ^3/uL Nucleated Red Blood Cells 0.2 % Sodium Level 134 L 136-145 mmol/L Potassium Level 3.5 3.5-5.1 mmol/L Chloride Level 100 98-107 mmol/L Carbon Dioxide Level 26 20-31 mmol/L Anion Gap 8 5-15 Blood Urea Nitrogen 47 H 9-23 mg/dL Creatinine 5.58 H 0.550-1.02 mg/dL Glomerular Filtration Rate Calc 9 >90 mL/min BUN/Creatinine Ratio 8.4 L 10.0-20.0 Serum Glucose 128 H 74-106 mg/dL Calcium Level 9.4 8.7-10.4 mg/dL Lipase 44 12-53 U/L Assessment/Plan Assessment/Plan Acute abdominal pain Generalized weakness Hypertensive urgency Electrolyte imbalance Nausea and vomiting End-stage renal disease on hemodialysis Plan 1. Admit to telemetry unit 2. Breathing treatment 3. Pain control management 4. Management of fluids and electrolytes 5. Consultation for Nephrology 6. Diagnostic tests chest x-ray 7. DVT prophylaxis-on aspirin 8. Repeat labs CBC, CMP in a.m. 9. Continue with current medical management 10. Treatment plan discussed with patient and RN. Patient verbalized understanding. Plan discussed with: Patient, Other (RN) My Orders Orders - CRYS LOPEZ DNP Procedure Category Date Status Time *Dr. Alma Bravo -Da CONS 09/06/24 Transmitted Martha 20:57 Aspirin Tablet PHA 09/07/24 In Process 10:00 Sevelamer (Renagel) PHA 09/07/24 In Process 08:00 B-Complex W/ C & PHA 09/07/24 In Process Folic Tablet 10:00 Hydralazine Injection PHA 09/06/24 In Process (Apresoline Inject 21:00 Amlodipine Tablet PHA 09/07/24 In Process (Norvasc Tablet) 10:00 Carvedilol Tablet PHA 09/06/24 In Process (Coreg Tablet) 22:00 Atorvastatin (Lipitor) PHA 09/06/24 In Process 22:00 Famotidine Injection PHA 09/07/24 In Process (Pepcid Injection) 10:00 Allergies ABEL 09/06/24 In Process 20:57 Code Status CODE 09/06/24 Transmitted 20:57 Renal DIET 09/07/24 Transmitted Standard(2gna,3gk,Lopho) Breakfast Oxygen Per Hour RT 09/06/24 Transmitted 20:57 Docusate Sodium PHA 09/06/24 In Process Capsule (Colace 21:00 Complete Blood Count LAB 09/07/24 Verified 04:00 Comprehensive LAB 09/07/24 Verified Metabolic Panel 04:00 Condition: Serious ABEL 09/06/24 In Process 20:57 Acetaminophen Tablet PHA 09/06/24 In Process (Tylenol Tablet) 21:00 Bedrest With Bathroom [facility] 09/06/24 In Process Privileg 20:57 Sequential [facility] 09/06/24 In Process Compression Device Clopidogrel Bisulfate [facility] 09/07/24 In Process (Plavix) 10:00 Metoclopramide [facility] 09/06/24 In Process Injection (Reglan 21:15 Admit ADMIT 09/06/24 Transmitted 22:44 Nitroglycerin [facility] 09/06/24 Transmitted Sublingual (Ntrostat 22:45 Morphine Sulfate [facility] 09/06/24 Transmitted Injection 22:45 Notify Md Of Changes [facility] 09/06/24 Transmitted From Base 22:44 Fitness Services Manager For [facility] 09/06/24 Transmitted 24 Hours 22:44 Emergency Dysrhythmia [facility] 09/06/24 Transmitted Protocol 22:44 Rhythm Strips Once [facility] 09/06/24 Transmitted Every Shift 22:44 Oxygen By Nasal 09/06/24 Transmitted Cannula 22:44 Problem List: (1) Acute abdominal pain (2) Generalized weakness (3) Hypertensive urgency (4) Electrolyte imbalance (5) Nausea and vomiting (6) End-stage renal disease on hemodialysis Date of Service: Sep 06, 2024 Billing Provider: CRYS LOPEZ DNP Common Visit Codes: [id number] INP/OBS CARE (HIGH) CRYS LOPEZ DNP Sep 06, 2024 22:46
[2024-09-06] MEDS: ATORVASTATIN 20 MG TAB PO SCH (23:47)
[2024-09-06] MEDS: CARVEDILOL 12.5 MG TAB PO SCH (23:47)
[2024-09-06] MEDS: amLODIPine BESYLATE 5 MG TAB PO ONE (23:48)
[2024-09-07 00:45] VITALS: PULSE 89; RESP 18; O2SAT 96
--- NOTE | 2024-09-07 06:29 | DVHINCON2 ---
Date of service: Sep 07, [address] Varela Reason for Consultation Dialysis History of Present Illness 53 Y/O F with history of ESRD on HD via Lt IJ tunneled CVC, DM, HTN, HLD, cholecystectomy and chronic pain presented with chief complaint of abdominal pain. In ER patient was hypertensive with SBP ~ 177 mmHg, blood pressure has improved to systolic of 130s with antihypertensives. She had her hemodialysis treatment yesterday/earlier the same day the prior to hospitalization. net UF of 2.4 L was done yesterday at [facility]. Nephrology consulted for maintenance of hemodialysis Past Medical History ESRD on HD, DM, HTN, HLD, and chronic pain Past Surgical History tunneled CVC placement Cholecystectomy Allergies: Coded Allergies: Ondansetron (Verified Allergy, Mild, 08/05/24) Hydromorphone (Verified Allergy, Unknown, 10/08/23) Ibuprofen (Verified Allergy, Unknown, 08/05/24) Morphine (Verified Allergy, Unknown, 08/05/24) Home Meds Active Scripts Nifedipine (Nifedipine Er) 30 Mg Tab, 60 MG PO QPM for 30 Days, #60 TAB Prov:JOSEMANUEL CORTES 07/18/24 Clopidogrel Bisulfate (Plavix) 75 Mg Tab, 75 MG PO DAILY for 60 Days, #60 TAB Prov:EAMON MURRAY MD 06/15/24 Nifedipine (Nifedipine Er) 30 Mg Tab, 30 MG PO QPM for 60 Days, #60 TAB Prov:EAMON MURRAY MD 06/15/24 Ergocalciferol (VITAMIN D 94810 UNIT) 50,000 [place], [address] UNIT PO Q7D for 7 Days, #7 CAP Prov:YOLANDA NGUYEN MD 06/05/24 Magnesium Citrate (Magnesium Citrate) 1.745 Gm/30 Ml Sasha, 300 ML PO DAILY PRN, #300 ML Prov:LINUS PAZ MD 06/07/22 Ondansetron (Zofran) 4 Mg Tab, 4 MG PO Q8HPRN PRN, #15 MG Prov:LINUS PAZ MD 06/07/22 Reported Medications Atorvastatin Calcium (Lipitor) 20 Mg Tab, 1 TAB PO DAILY for 30 Days, #30 07/16/24 Losartan Potassium (Losartan Potassium) 100 Mg Tab, 1 TAB PO DAILY for 90 Days, #90 07/16/24 Spironolactone (Spironolactone) 25 Mg Tab, 1 TAB PO DAILY for 90 Days, #90 07/16/24 Ergocalciferol (Vitamin D (Ergocalciferol) 50,000 Unit Cap, 1 CAP PO QWEEKLY for 49 Days, #7 07/16/24 Furosemide (Furosemide) 40 Mg Tab, 1 TAB PO DAILY for 30 Days, #30 07/16/24 Amlodipine Besylate (Amlodipine Besylate) 5 Mg Tab, 1 TAB PO BID for 30 Days, #60 07/16/24 Calcitriol (Calcitriol) 0.5 Mcg Cap, 1 CAP PO BID for 30 Days, #60 07/16/24 Hydroxyzine Hcl (Hydroxyzine Hcl) 25 Mg Tab, 1 TAB PO QID PRN 04/21/24 Lactulose (Lactulose) 10 Gm/15 Ml Sasha, 30 ML PO DAILY 04/21/24 Docusate Sodium (Colace) 100 Mg Cap, 1 CAP PO BID 04/21/24 Lidocaine (Ztlido) 1.8 % Pad, 1 PATCH EX DAILY 04/21/24 Apixaban Base (ELIQUIS) 5 Mg Tab, 1 TAB PO BID for 30 Days, #30 04/21/24 Escitalopram Oxalate (Lexapro) 5 Mg Tab, 1 TAB PO DAILY 04/21/24 Benzonatate (Benzonatate) 100 Mg Cap, 1 TAB PO TID 04/21/24 Cinacalcet Hydrochloride (Sensipar) 30 Mg Tab, 1 TAB PO DAILY for 30 Days, #30 04/21/24 Sevelamer Carbonate (Renvela) 800 Mg Tab, 3 TAB PO TID for 30 Days, #270 04/21/24 Gabapentin (Gabapentin) 100 Mg Cap, 1 TAB PO DAILY for 90 Days, #90 04/21/24 Pantoprazole Sodium Sesquihydr (Protonix) 40 Mg Tab, 1 TAB PO BID for 30 Days, #60 04/21/24 Senna (Senokot) 8.6 Mg Tab, 2 TAB PO BID for 15 Days, #60 03/27/24 Carvedilol (Carvedilol) 12.5 Mg Tab, 1 TAB PO BID for 60 Days 03/27/24 Dicyclomine Hcl (Dicyclomine Hcl) 10 Mg Cap, 10 MG PO TIDPRN PRN for PAIN SCALE 1 THRU 6 for 30 Days, MG 03/27/24 Hydrocodone-Acetaminophen (Hydrocodone Bitartrate/AC 5-325 mg) 1 Tab Tab, 1 TAB PO Q6HP PRN for PAIN SCALE 1 THRU 6, TAB 03/27/24 Amitriptyline Hcl (Amitriptyline Hcl) 25 Mg Tab, 50 MG PO HS for 30 Days, #30 03/27/24 Aspirin (Aspir-Low) 81 Mg Tab, 1 TAB PO DAILY for 30 Days, #30 03/27/24 Amitriptyline HCl (Amitriptyline Hydrochlori) 50 Mg Tab, 1 TAB PO 09/21/23 Losartan Potassium (Losartan Potassium) 100 Mg Tab, 1 TAB PO DAILY 09/21/23 Furosemide (Furosemide) 40 Mg Tab, 1 TAB PO DAILY 09/21/23 Amlodipine Besylate (Amlodipine Besylate) 5 Mg Tab, 1 TAB PO BID 09/21/23 Cinacalcet HCl (Cinacalcet Hydrochloride) 30 Mg Tab, 1 TAB PO DAILY 09/21/23 Calcitriol (Calcitriol) 0.25 Mcg Cap, 1 CAP PO DAILY 09/21/23 Pantoprazole Sodium Sesquihydr (Pantoprazole Sodium) 40 Mg Tab, 1 TAB PO BID 09/21/23 Nifedipine (Nifedipine Er) 90 Mg Tab 09/21/23 Gabapentin (Gabapentin) 100 Mg Cap, 1 CAP PO TID 09/21/23 Sevelamer Hydrochloride (Sevelamer Hydrochloride) 800 Mg Tab, 3 TAB PO TID 09/21/23 Aspirin (Aspirin Low Dose) 81 Mg Chw, 1 TAB PO DAILY 09/21/23 Albuterol Sulfate (Albuterol Sulfate Hfa) 108 Mcg/Act Aer, INH 09/21/23 Clonidine Hydrochloride (Clonidine Hcl) 0.1 Mg Tab, 1 TAB PO BID 09/21/23 Carvedilol (Carvedilol) 6.25 Mg Tab, 1 TAB PO BID 09/21/23 Hydralazine HCl (Hydralazine HCl) 25 Mg Tab, 1 TAB PO BID 09/21/23 Current Medications Current Medications Medications (Trade) Dose Ordered Sig/Faustino Route PRN Reason Start Time Stop Time Status Last Admin Aspirin 81 mg DAILY PO 09/07/24 10:00 Sevelamer HCl (Renagel) 800 mg TIDWM PO 09/07/24 08:00 Multivit/Ca Carb/ B Cmplx/FA/Prenat (Nephro-Chely Tablet) 1 tab DAILY PO 09/07/24 10:00 Hydralazine HCl (Apresoline Injection) 10 mg Q6HP PRN IV SBP>150 09/06/24 21:00 Amlodipine Besylate (Norvasc Tablet) 5 mg DAILY PO 09/07/24 10:00 Carvedilol (Coreg Tablet) 12.5 mg Q12HR PO 09/06/24 22:00 09/06/24 23:47 Atorvastatin Calcium (Lipitor) 20 mg HS PO 09/06/24 22:00 09/06/24 23:47 Famotidine (Pepcid Injection) 10 mg DAILY IV 09/07/24 10:00 Docusate Sodium (Colace Capsule) 100 mg BIDPRN PRN PO FOR CONSTIPATION 09/06/24 21:00 Acetaminophen (Tylenol Tablet) 650 mg Q6HP PRN PO PAIN SCALE 1-3 OR TEMP>100.4 09/06/24 21:00 Clopidogrel Bisulfate (Plavix) 75 mg DAILY PO 09/07/24 10:00 Metoclopramide HCl (Reglan Injection) 5 mg Q6HPRN PRN IV NAUSEA / VOMITING 09/06/24 21:15 Nitroglycerin (Ntrostat Sublingual) 0.4 mg Q5MINP PRN SL FOR CHEST PAIN 09/06/24 22:45 Morphine Sulfate 2 mg Q30M PRN IV FOR CHEST PAIN 09/06/24 22:45 UNV Family History: Cardiovascular disease G8 MOTHER, G8 MOTHER Cardiovascular disease G8 MOTHER, G8 MOTHER Prostate carcinoma G8 FATHER Review of Systems as per HPI, all other systems were reviewed and are negative. H&P Exam Vital Signs/I&O Vital Sign Date Time Temp Pulse Resp B/P (MAP) Pulse Ox O2 Delivery O2 Flow Rate FiO2 09/07/24 04:00 69 14 134/75 (94) 98 09/07/24 00:45 Room Air* 0 21 09/06/24 14:34 98.2 98.2 Physical Exam Gen: NAD HEENT: NC,AT Lungs: CTA b/l Cardiac: RRR, no murmur Abd: soft, no tenderness Ext: no edema + IJ TC Labs/Diagnostic Data Labs/Diagnostic Data Laboratory Tests Test 09/06/24 15:19 09/06/24 14:25 Range/Units White Blood Count 5.7 4.4-10.8 10^3/uL Red Blood Count 3.85 L 4.0-5.20 10^6/uL Hemoglobin 11.6 L 12.2-16.2 g/dL Hematocrit 36.2 36.0-46.0 % Mean Corpuscular Volume 93.9 80.0-100.0 fL Mean Corpuscular Hemoglobin 30.0 28.0-32.0 pg Mean Corpuscular Hemoglobin Concent 32.0 32.0-36.0 g/dL Red Cell Distribution Width 16.6 H 11.8-14.3 % Platelet Count 195 140-450 10^3/uL Mean Platelet Volume 7.2 6.9-10.8 fL Neutrophils (%) (Auto) 65.8 37.0-80.0 % Lymphocytes (%) (Auto) 23.7 10.0-50.0 % Monocytes (%) (Auto) 7.5 0.0-12.0 % Eosinophils (%) (Auto) 2.1 0.0-7.0 % Basophils (%) (Auto) 0.9 0.0-2.0 % Neutrophils # (Auto) 3.8 1.6-8.6 10 ^3/uL Lymphocytes # (Auto) 1.4 0.4-5.4 10 ^3/uL Monocytes # (Auto) 0.4 0-1.3 10 ^3/uL Eosinophils # (Auto) 0.1 0-0.8 10 ^3/uL Basophils # (Auto) 0.1 0-0.2 10 ^3/uL Nucleated Red Blood Cells 0.2 % Sodium Level 134 L 136-145 mmol/L Potassium Level 3.5 3.5-5.1 mmol/L Chloride Level 100 98-107 mmol/L Carbon Dioxide Level 26 20-31 mmol/L Anion Gap 8 5-15 Blood Urea Nitrogen 47 H 9-23 mg/dL Creatinine 5.58 H 0.550-1.02 mg/dL Glomerular Filtration Rate Calc 9 >90 mL/min BUN/Creatinine Ratio 8.4 L 10.0-20.0 Serum Glucose 128 H 74-106 mg/dL Calcium Level 9.4 8.7-10.4 mg/dL Lipase 44 12-53 U/L Assessment Assessment: ESRD on HD via Lt IJ tunneled CVC Abdominal pain Hypertension DM HLD h/o cholecystectomy Anemia of CKD Hyperphosphatemia Secondary hyperparathyroidism Metabolic acidosis Plan: s/p HD on Sunday at [facility]. net UF 2.4 L Next HD on Sunday pain control UDAY post HD as needed, goal 10-11 g/dl Sevelamer TID with meals Coreg and Amlodipine Plan discussed with: Patient JIGAR GARY MD Sep 07, 2024 06:29
[2024-09-07] MEDS: SEVELAMER 800 MG TAB PO SCH (08:00)
[2024-09-07] MEDS: CLOPIDOGREL BISULFATE 75 MG TAB PO SCH (09:44)
[2024-09-07] MEDS: DOCUSATE SOD 100 MG CAP PO PRN (09:44)
[2024-09-07] MEDS: amLODIPine BESYLATE 5 MG TAB PO SCH (09:45)
[2024-09-07] MEDS: ASPirin 81 mg TAB PO SCH (09:45)
[2024-09-07] MEDS: FAMOTIDINE (10MG/ML) 2ML VL IV SCH (09:46)
[2024-09-07] MEDS: hydrALAZINE HCL 20 MG/ML VL IV PRN (09:49)
[2024-09-07] MEDS: B-COMPLEX W/ C & FOLIC ACID(NEPHROVITE TAB) PO SCH (12:49)
[2024-09-07 13:09] LABS: Basophils # (auto) 0 10 ^3/uL (0-0.2); Basophils % (auto) 0.6 % (0.0-2.0); Eosinophils # (auto) 0.1 10 ^3/uL (0-0.8); Eosinophils % (auto) 2.7 % (0.0-7.0); Hematocrit 34.4 % (36.0-46.0); Hemoglobin 11.3 g/dL (12.2-16.2); Lymphocytes # (auto) 0.7 10 ^3/uL (0.4-5.4); Lymphocytes % (auto) 12.6 % (10.0-50.0); Mean Corpuscular Hgb Conc. 32.7 g/dL (32.0-36.0); Mean Corpuscular Volume 91.5 fL (80.0-100.0); Monocytes # (auto) 0.3 10 ^3/uL (0-1.3); Monocytes % (auto) 5.8 % (0.0-12.0); Neutrophils # (auto) 4.1 10 ^3/uL (1.6-8.6); Neutrophils % (auto) 78.3 % (37.0-80.0); Nucleated Red Blood Cells % 0.1 %; Platelet Count (auto) 181 10^3/uL (140-450); Red Blood Cells 3.76 10^6/uL (4.0-5.20); White Blood Cell 5.2 10^3/uL (4.4-10.8)
[2024-09-07 13:26] LABS: INR 1.18 (0.9-1.15); Prothrombin Time 12.4 sec (9.3-11.8)
[2024-09-07 13:28] LABS: Albumin 3.2 g/dL (3.2-4.8); Alkaline Phosphatase 91 U/L (46-116); Anion Gap 9 (5-15); BUN/Creatinine Ratio 8.9 (10.0-20.0); Calcium 9.9 mg/dL (8.7-10.4); Carbon Dioxide 26 mmol/L (20-31); Chloride 101 mmol/L (98-107); Potassium 4.1 mmol/L (3.5-5.1); Sodium 136 mmol/L (136-145); Total Protein 6.3 g/dL (5.7-8.2)
[2024-09-07 13:47] LABS: Alanine Aminotransferase 9 U/L (7-40); Aspartate Aminotransferase 9 U/L (13-40); Bilirubin, Total 0.3 mg/dL (0.2-1.0); Blood Urea Nitrogen 61 mg/dL (9-23); Glucose 150 mg/dL (74-106)
--- NOTE | 2024-09-07 19:27 | DVHPNRES ---
Progress Note Date Seen: Sep 07, 2024 Resident Creating Document: STERLING MESSER RESIDENT Medical Necessity Reason Pt with a Central, PICC or Fol: No Subjective Review of Systems 53-year-old female patient with past medical history of end-stage renal disease currently on hemodialysis , coronary artery disease status post CABG, myocardial infarction, obesity, cerebrovascular accident, type 2 diabetes hypertension hyperlipidemia cholecystectomy and chronic pain presented to the emergency per minute with a chief complaint of abdominal pain that was very severe on admission , mother is distention and pain localized all over the. On admission the patient blood pressure was on was 77 systolic blood pressure per improved to 130 with antihypertensive. She reports the abdominal pain and nausea symptoms started after recent hemodialysis. Nephrology was consulted and they recommend erythropoietin post hemodialysis as needed with a goal of 10-11 grams/deciliter cerebellum are t.i.d. with meals. Next hemodialysis is scale on dystrophic. We will closely monitor this patient. Patient reports: No new complaints Changes from previous H/P or p: No Changes Objective vital signs Vital Sign Date Time Temp Pulse Resp B/P (MAP) Pulse Ox O2 Delivery O2 Flow Rate FiO2 09/07/24 17:37 81 16 154/87 (109) 95 09/07/24 00:45 Room Air* 0 21 09/06/24 14:34 98.2 98.2 medications Current Medications Medications Dose Ordered Sig/Faustino Route Start Time Stop Time Status Last Admin Dose Admin Aspirin 81 mg DAILY PO 09/07/24 10:00 09/07/24 09:45 81 MG Sevelamer HCl 800 mg TIDWM PO 09/07/24 08:00 Multivit/Ca Carb/ B Cmplx/FA/Prenat 1 tab DAILY PO 09/07/24 10:00 Hydralazine HCl 10 mg Q6HP PRN IV 09/06/24 21:00 09/07/24 09:49 10 MG Amlodipine Besylate 5 mg DAILY PO 09/07/24 10:00 09/07/24 09:45 5 MG Carvedilol 12.5 mg Q12HR PO 09/06/24 22:00 09/07/24 09:44 12.5 MG Atorvastatin Calcium 20 mg HS PO 09/06/24 22:00 09/07/24 09:45 20 MG Famotidine 10 mg DAILY IV 09/07/24 10:00 09/07/24 09:46 10 MG Docusate Sodium 100 mg BIDPRN PRN PO 09/06/24 21:00 09/07/24 09:44 100 MG Acetaminophen 650 mg Q6HP PRN PO 09/06/24 21:00 Clopidogrel Bisulfate 75 mg DAILY PO 09/07/24 10:00 09/07/24 09:44 75 MG Metoclopramide HCl 5 mg Q6HPRN PRN IV 09/06/24 21:15 Nitroglycerin 0.4 mg Q5MINP PRN SL 09/06/24 22:45 Examination: GENERAL:Normal, HEENT:Normal, NECK:Normal, LUNGS:Normal, CVS:Normal, ABDOMEN:Abnormal, MSK:Normal, SKIN:Normal, NEURO:Normal, :Normal laboratory and microbiology Laboratory Tests 09/07/24 12:45 Test 09/07/24 12:45 Range/Units Serum Glucose 150 H 74-106 mg/dL Problem List/Assessment/Plan Problem List/Assessment/Plan End-stage urinalysis on hemodialysis via Lt IJ tunneled CVC Abdominal pain Patient was admitted with a 3. Nephrology consultation pain medication sevelamer t.i.d. Hemodialysis schedule on Sunday Hypertensive urgency -Carvedilol 12.5 bid Amlodipine 10 mg -hydralazine 10 mg p.r.n. SBP> 150 Type 2 diabetes -A1c Hyperlipidemia Atorvastatin 20 mg p.o. h/o cholecystectomy Anemia of CKD Erythropoietin on dialysis Hyperphosphatemia Sevelamer t.i.d. Type 1 obesity Lifestyle modification counseling, dietary habits counseling. Case discussed with Dr. Palafox Goals of care discussed with the patient for 31 minutes Code status: Full code Plan discussed with: Patient My Orders My Orders Orders - STERLING MESSER Procedure Category Date Status Time Vitamin D, 25-Hydroxy LAB 09/07/24 In Process 08:35 Urinalysis LAB 09/07/24 Uncollected 08:35 Vitamin B12 LAB 09/07/24 In Process 08:35 Abg W/ Co-Ox RT 09/07/24 Logged 09:26 Date of Service: Sep 07, 2024 Billing Provider: PATRICIA BROWNE MD Common Visit Codes: [id number] INP/OBS CARE(HIGH) STERLING MESSER RESIDENT Sep 07, 2024 19:27 PATRICIA BROWNE MD Sep 09, 2024 20:31
[2024-09-08 04:39] LABS: Albumin 3.5 g/dL (3.2-4.8); Alkaline Phosphatase 99 U/L (46-116); Anion Gap 9 (5-15); Aspartate Aminotransferase 16 U/L (13-40); BUN/Creatinine Ratio 6.6 (10.0-20.0); Bilirubin, Total 0.3 mg/dL (0.2-1.0); Calcium 9.9 mg/dL (8.7-10.4); Carbon Dioxide 23 mmol/L (20-31); Chloride 101 mmol/L (98-107); Glucose 95 mg/dL (74-106); Potassium 4.9 mmol/L (3.5-5.1)
[2024-09-08 04:44] LABS: Basophils # (auto) 0.1 10 ^3/uL (0-0.2); Basophils % (auto) 0.9 % (0.0-2.0); Eosinophils # (auto) 0.2 10 ^3/uL (0-0.8); Eosinophils % (auto) 3.6 % (0.0-7.0); Hematocrit 38.2 % (36.0-46.0); Hemoglobin 11.9 g/dL (12.2-16.2); Lymphocytes # (auto) 0.8 10 ^3/uL (0.4-5.4); Lymphocytes % (auto) 13.7 % (10.0-50.0); Mean Corpuscular Hgb Conc. 31.1 g/dL (32.0-36.0); Mean Corpuscular Volume 96.7 fL (80.0-100.0); Monocytes # (auto) 0.6 10 ^3/uL (0-1.3); Monocytes % (auto) 10.5 % (0.0-12.0); Neutrophils % (auto) 71.3 % (37.0-80.0); Nucleated Red Blood Cells % 0.2 %; Platelet Count (auto) 180 10^3/uL (140-450); Red Blood Cells 3.95 10^6/uL (4.0-5.20); Red Cell Distribution Width 17.2 % (11.8-14.3); White Blood Cell 5.7 10^3/uL (4.4-10.8)
[2024-09-08 05:00] LABS: Alanine Aminotransferase 9 U/L (7-40); Blood Urea Nitrogen 50 mg/dL (9-23); Sodium 133 mmol/L (136-145)
[2024-09-08 13:02] LABS: COVID19 ANTIGEN SOFIA FIA NEGATIVE (NEGATIVE); Rapid Influenza A Negative (Negative); Rapid Influenza B Negative (Negative)
[2024-09-08] MEDS: LOSARTAN POTASSIUM 50 MG TAB PO ONE (13:33)
[2024-09-08] MEDS: amLODIPine BESYLATE 5 MG TAB PO SCH (13:33)
--- NOTE | 2024-09-08 14:51 | DVHPN2 ---
Progress Note - Dictate Date Seen: Sep 08, 2024 Medical Necessity Reason Pt with a Central, PICC or Fol: No Subjective no acute issues overnight vital signs Vital Sign Date Time Temp Pulse Resp B/P (MAP) Pulse Ox O2 Delivery O2 Flow Rate FiO2 09/08/24 13:33 168/81 09/08/24 13:31 89 16 98 09/08/24 06:05 Nasal Cannula* 3 32 09/08/24 06:00 97.7 97.7 medications Current Medications Medications Dose Ordered Sig/Faustino Route Start Time Stop Time Status Last Admin Dose Admin Aspirin 81 mg DAILY PO 09/07/24 10:00 09/07/24 09:45 81 MG Sevelamer HCl 800 mg TIDWM PO 09/07/24 08:00 09/08/24 12:09 800 MG Multivit/Ca Carb/ B Cmplx/FA/Prenat 1 tab DAILY PO 09/07/24 10:00 Hydralazine HCl 10 mg Q6HP PRN IV 09/06/24 21:00 09/08/24 10:38 10 MG Carvedilol 12.5 mg Q12HR PO 09/06/24 22:00 09/07/24 09:44 12.5 MG Atorvastatin Calcium 20 mg HS PO 09/06/24 22:00 09/07/24 09:45 20 MG Famotidine 10 mg DAILY IV 09/07/24 10:00 09/07/24 09:46 10 MG Docusate Sodium 100 mg BIDPRN PRN PO 09/06/24 21:00 09/07/24 09:44 100 MG Acetaminophen 650 mg Q6HP PRN PO 09/06/24 21:00 Clopidogrel Bisulfate 75 mg DAILY PO 09/07/24 10:00 09/07/24 09:44 75 MG Metoclopramide HCl 5 mg Q6HPRN PRN IV 09/06/24 21:15 Nitroglycerin 0.4 mg Q5MINP PRN SL 09/06/24 22:45 Amlodipine Besylate 10 mg DAILY PO 09/08/24 13:00 09/08/24 13:33 10 MG objective Gen: NAD HEENT: NC,AT Lungs: CTA b/l Cardiac: RRR, no murmur Abd: soft, no tenderness Ext: no edema + IJ TC laboratory and microbiology Laboratory Tests 09/08/24 03:48 Test 09/08/24 03:48 Range/Units Serum Glucose 95 74-106 mg/dL Problem List ESRD on HD via Lt IJ tunneled CVC Abdominal pain Hypertension DM HLD h/o cholecystectomy Anemia of CKD Hyperphosphatemia Secondary hyperparathyroidism Metabolic acidosis Assessment/Plan Plan: s/p HD on Sunday at [facility]. net UF 2.4 L Next HD on UDAY post HD as needed, goal 10-11 g/dl Sevelamer TID with meals stable from renal standpoint for dc Plan discussed with: Patient LIBIA LADD MD Sep 08, 2024 14:51
[2024-09-08] MEDS: ACETAMINOPHEN 325 MG TAB PO PRN (15:22)
[2024-09-08 15:45] VITALS: TEMP 97.6
[2024-09-08 18:31] VITALS: BP 142/62; PULSE 81; RESP 16; O2SAT 100
--- NOTE | 2024-09-08 18:35 | DVHDSRES ---
Discharge Summary Date of Admission Resident Creating Document: STERLING MESSER RESIDENT Sep 06, 2024 at 22:44 Date of Discharge: Sep 08, 2024 Admitting Diagnosis Hypertensive urgency Labs/Diagnostic Data: Laboratory Results Test 09/08/24 11:04 09/08/24 03:48 09/07/24 12:45 09/07/24 10:05 Influenza Type A Antigen Negative (Negative) Influenza Type B Antigen Negative (Negative) SARS-CoV-2 Antigen (Rapid) Negative (NEGATIVE) White Blood Count 5.7 10^3/uL (4.4-10.8) Red Blood Count 3.95 10^6/uL (4.0-5.20) Hemoglobin 11.9 g/dL (12.2-16.2) Hematocrit 38.2 % (36.0-46.0) Mean Corpuscular Volume 96.7 fL (80.0-100.0) Mean Corpuscular Hemoglobin 30.0 pg (28.0-32.0) Mean Corpuscular Hemoglobin Concent 31.1 g/dL (32.0-36.0) Red Cell Distribution Width 17.2 % (11.8-14.3) Platelet Count 180 10^3/uL (140-450) Mean Platelet Volume 7.7 fL (6.9-10.8) Neutrophils (%) (Auto) 71.3 % (37.0-80.0) Lymphocytes (%) (Auto) 13.7 % (10.0-50.0) Monocytes (%) (Auto) 10.5 % (0.0-12.0) Eosinophils (%) (Auto) 3.6 % (0.0-7.0) Basophils (%) (Auto) 0.9 % (0.0-2.0) Neutrophils # (Auto) 4.0 10 ^3/uL (1.6-8.6) Lymphocytes # (Auto) 0.8 10 ^3/uL (0.4-5.4) Monocytes # (Auto) 0.6 10 ^3/uL (0-1.3) Eosinophils # (Auto) 0.2 10 ^3/uL (0-0.8) Basophils # (Auto) 0.1 10 ^3/uL (0-0.2) Nucleated Red Blood Cells 0.2 % Sodium Level 133 mmol/L (136-145) Potassium Level 4.9 mmol/L (3.5-5.1) Chloride Level 101 mmol/L (98-107) Carbon Dioxide Level 23 mmol/L (20-31) Anion Gap 9 (5-15) Blood Urea Nitrogen 50 mg/dL (9-23) Creatinine 7.62 mg/dL (0.550-1.02) Glomerular Filtration Rate Calc 6 mL/min (>90) BUN/Creatinine Ratio 6.6 (10.0-20.0) Serum Glucose 95 mg/dL (74-106) Calcium Level 9.9 mg/dL (8.7-10.4) Total Bilirubin 0.3 mg/dL (0.2-1.0) Aspartate Amino Transferase (AST) 16 U/L (13-40) Alanine Aminotransferase (ALT) 9 U/L (7-40) Alkaline Phosphatase 99 U/L (46-116) Total Protein 7.0 g/dL (5.7-8.2) Albumin 3.5 g/dL (3.2-4.8) Prothrombin Time 12.4 sec (9.3-11.8) Prothrombin Time INR 1.18 (0.9-1.15) Hemoglobin A1c 5.7 % A1C (<5.7) Lactic Acid Level 1.2 mmol/L (0.4-2.0) Iron Level 37 ug/dL (50-170) Total Iron Binding Capacity 206 ug/dL (250-425) Percent Iron Saturation 18.0 % (15-50) Vitamin B12 Level 374 pg/mL (211-911) Vitamin D 25-Hydroxy 37.3 ng/mL (30.0-100) Blood Gas Specimen Type Arterial Blood Gas Sample Site Right radial Blood Gas Patient Temperature 37.0 Arterial Blood Date Drawn [id number] Arterial Blood pH 7.333 (7.350-7.450) Arterial Blood Partial Pressure CO2 53.6 mmHg (32.0-45.0) Arterial Blood Partial Pressure O2 37.5 mmHg (83.0-108.0) Arterial Blood HCO3 27.8 mmol/L (21.0-28.0) Arterial Blood Oxygen Saturation 63.9 % (94.0-98.0) Arterial Blood Base Excess 1.0 mmol/L (-2.0-3.0) Arterial Blood Oxyhemoglobin 62.9 % (94.0-98.0) Arterial Blood Carboxyhemoglobin 1.1 % (0.5-1.5) Arterial Blood Methemoglobin 0.4 % (0.0-1.5) Stephen Test Yes Blood Gas Total Hemoglobin 13.40 g/dL (12.0-16.0) Blood Gas Liter Flow 4.00 Blood Gas Modality Nasal cannula FiO2 % 36.0 Blood Gas Critical Value Read Back Yes Blood Gas Notified Whom Blood Gas Notified Time [id number] Blood Gas Notified By [employer] pawel Test 09/06/24 14:25 Lipase 44 U/L (12-53) Other Laboratory Tests 09/08/24 03:48 Brief Hx & Hospital Course: HPI: 53-year-old female patient with past medical history of end-stage renal disease currently on hemodialysis , coronary artery disease status post CABG, myocardial infarction, obesity, cerebrovascular accident, type 2 diabetes hypertension hyperlipidemia cholecystectomy and chronic pain presented to the emergency per minute with a chief complaint of abdominal pain that was very severe on admission , mother is distention and pain localized all over the. On admission the patient blood pressure was on was 177 systolic blood pressure even reaching until more than 200 systolic blood pressure, improved to 130 with hydralazine IV. Hospital course: During hospitalization patient reports the abdominal pain and nausea symptoms started after recent hemodialysis. Nephrology was consulted and they recommend erythropoietin post hemodialysis as needed with a goal of 10-11 grams/deciliter cerebellum are t.i.d. with meals. Next hemodialysis was scheduled for tomorrow, patient has been evaluated , she reports improvement in her symptoms during hospitalization she was complaining of coughing episodes, influenza and COVID were tested being negative both of them. Creatinine and BUN were found to be high but patient was hemodynamically stable,. Patient improved in her symptoms for which the patient was discharged home, with the following recommendations to assist to next hemodialysis appointment tomorrow. The day of discharge nephrology evaluated the patient based on patient's clinical status and no recent issues overnight the patient was cleared for discharge from Nephrology standpoint. During hospitalization high blood pressure episodes were managed with hydralazine p.r.n. and losartan 100 and amlodipine 10 mg p.o. before discharge. Disposition: Patient stable for discharge. Case discussed with Dr. Willingham Goals of care discussed with the patient for 27 minutes. 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 Patient was counseled about treatment plan, medications, possible side effects, patientverbalized understanding. All questions were answered to the best of my ability. This discharge took greater then 30 minutes in planning, reviewing documentation, counseling the patient, and discussing with other team members." ASSESSMENT ASSESSMENT Assessment End-stage urinalysis on hemodialysis via Lt IJ tunneled CVC Abdominal pain Hypertensive urgency Anemia of CKD Hyperlipidemia Hyperphosphatemia Date of Service: Sep 08, 2024 Billing Provider: SHOBHA WILLINGHAM MD Common Visit Codes: 76020-FRF/OBS DISCH DAY >30min STERLING MESSER RESIDENT Sep 08, 2024 18:35 SHOBHA WILLINGHAM MD Sep 08, 2024 19:39
[2024-09-08] MEDS ORDERED: CARV-216 OR (22:23)
== END 2024-09-08 23:53 | disposition home or self-care (01) | DRG 207 ==
LOC: EDUNIT# 13:30 → ER 13:30 → EDBD 13:30 → TELE 22:44
PROVIDERS: ADMIT Internal Medicine Geriatric Medicine; ATTEND Internal Medicine Geriatric Medicine
DX: I95.3 Hypotension of hemodialysis (principal); I13.2 Hypertensive heart and chronic kidney disease with heart failure and with stage 5 chronic kidney disease, or end stage renal disease; E87.20 Acidosis, unspecified; D63.1 Anemia in chronic kidney disease; N18.6 End stage renal disease; E83.39 Other disorders of phosphorus metabolism; I16.0 Hypertensive urgency; E11.22 Type 2 diabetes mellitus with diabetic chronic kidney disease; E78.5 Hyperlipidemia, unspecified; I25.10 Atherosclerotic heart disease of native coronary artery without angina pectoris; I50.9 Heart failure, unspecified; N25.81 Secondary hyperparathyroidism of renal origin; G89.29 Other chronic pain; Z99.2 Dependence on renal dialysis; Z95.1 Presence of aortocoronary bypass graft; Z88.6 Allergy status to analgesic agent; Z86.73 Personal history of transient ischemic attack (TIA), and cerebral infarction without residual deficits; Z88.5 Allergy status to narcotic agent; Z90.49 Acquired absence of other specified parts of digestive tract; Z82.49 Family history of ischemic heart disease and other diseases of the circulatory system
CPT/HCPCS: 36415; 36600; 80048; 80053; 82306; 82607; 82805; 83036; 83540; 83550; 83605; 83690; 85025; 85610; 87426; 87804; 99291; G0378; J2405; J3490